=== PATIENT | female | born 1995 | race Caucasian/White ===

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

== ENCOUNTER 2017-01-07 11:33 | Emergency (ER) | payer MEDICAID ==
--- NOTE | 2017-01-07 12:07 | PD ---
HPI Chief Complaint cramping Date Seen: Jan 07, 2017 Time Seen: 12:10 (Cullen Tillman MD R2) Travel History International Travel<30 Days: No Contact w/Intl Traveler<30Days: No (Cullen Tillman MD R2) History of Present Illness HPI 21 year old at 37/6 weeks presents for cramping and leaking fluid. Cramping began last night. It occurs every 30 minutes. Pain is mild to moderate. She noticed her underwear was wet with clear fluid yesterday. She does not believe it is discharge. She has no dysuria or frequent urination and no fevers. She otherwise feels fine. (Cullen Tillman MD R2) History Past Medical History Medical History: Denies Significant Hx (Cullen Tillman MD) Obstetric History Obstetric History at 37/6 weeks [facility] : miscarriage at 16 weeks This : No complications reported (Cullen Tillman MD) Past Surgical History Surgical History: No Previous Surgery (Cullen Tillman MD) Family History Family History: Negative (Cullen Tillman MD) Social History Alcohol Use: No Tobacco Use: No Substance Abuse: No (Cullen Tillman MD) Allergies-Medications (Allergen,Severity, Reaction): Coded Allergies: No Known Allergies (Verified , 01/06/17) Home Meds Reported Medications W/O A W/ Fe Asparto G (Prenate Pixie 10-0.6-0.4-200 mg)1 Cap Cap Po # 30 10/03/16 Review of Systems Except as stated in HPI: all other systems reviewed are Neg (Cullen Tillman MD R2) Physical Exam Narrative GENERAL: Well-nourished, well-developed patient. SKIN: Warm and dry. HEAD: Normocephalic and atraumatic. EYES: No scleral icterus. No injection or drainage. ENT: No nasal drainage noted. Mucous membranes pink. Airway patent. NECK: Supple, trachea midline. No JVD. CARDIOVASCULAR: Regular rate and rhythm without murmurs, gallops, or rubs. RESPIRATORY: Breath sounds equal bilaterally. No accessory muscle use. ABDOMEN/GI: Abdomen soft, non-tender, bowel sounds present, no rebound, no guarding Gravid to 37 weeks size GENITOURINARY: External Genitalia: intact and normal in appearance Dilatation: 3 Effacement: 505 Station: -3 Presentation: [-] Membranes: intact Uterine Contractions: none FHT's: Category: 1 Baseline: 130's Reactive: yes Variability: moderate Decels: none EXTREMITIES: No cyanosis or edema. BACK: Nontender without obvious deformity. No CVA tenderness. NEUROLOGICAL: Awake and alert. Motor and sensory grossly within normal limits. Five out of 5 muscle strength in all muscle groups. Normal speech. (Cullen Tillman MD R2) Data Data Vital Signs Reviewed: Yes (Cullen Tillman MD R2) [facility] Medical Record Reviewed: Yes Interpretation(s) 21 year old at 37/6 weeks presents with cramping - Labor check - Amnisure - Hydration Narrative Course / MDM 21 year old at 37/6 weeks presented with cramping - Amnisure negative - Cervix unchanged - Labor ruled out - Close follow up with OB - Reviewed labor precautions (Cullen Tillman MD R2) Diagnosis Diagnosis: Primary Impression: Uterine cramping Disposition: 01 DISCHARGE HOME Condition: Good Attestation The exam, history, and the medical decision-making described in the above note were completed with the assistance of the resident provider. I reviewed and agree with the findings presented. I attest that I had a [id number] encounter with the patient on the same day, and personally performed and documented my assessment and findings in the medical record. (Kian Flores MD) Cullen Tillman MD R2 Jan 07, 2017 12:07 Kian Flores MD Jan 07, 2017 13:34
[2017-01-07 12:15] VITALS: BP 108/77; PULSE 96; PULSE 97; RESP 18
[2017-02-27] MEDS ORDERED: NORE1CAP PO (10:48)
== END 2017-01-07 13:53 | disposition home or self-care (01) ==
LOC: HOBED 11:33
DX: O26.93 Pregnancy related conditions, unspecified, third trimester (principal); R10.9 Unspecified abdominal pain; Z3A.37 37 weeks gestation of pregnancy
CPT/HCPCS: 84112; 99284

== ENCOUNTER 2017-01-22 22:28 | Emergency (ER) | payer MEDICAID ==
--- NOTE | 2017-01-22 23:05 | PD ---
HPI Chief Complaint Contractions Date Seen: Jan 22, 2017 Time Seen: 23:01 Travel History International Travel<30 Days: No Contact w/Intl Traveler<30Days: No Known Affected Area: No History of Present Illness HPI 21-year-old white female who is at 39 weeks and 2 days comes in today because of contractions since 2 PM this afternoon. They've been mostly irritating mostly irregular and a little bit of mucousy discharge earlier this afternoon. Was seen in the office earlier this week and her cervix was 1 cm. Group B strep is negative Para: 0 : 1 History Past Medical History Medical History: Denies Significant Hx Past Surgical History Surgical History: No Previous Surgery Family History Family History: Negative Social History Alcohol Use: No Tobacco Use: No Substance Abuse: No Allergies-Medications (Allergen,Severity, Reaction): Coded Allergies: No Known Allergies (Verified , 01/20/17) Home Meds Reported Medications W/O A W/ Fe Asparto G (Prenate Pixie 10-0.6-0.4-200 mg)1 Cap Cap Po # 30 10/03/16 Review of Systems Except as stated in HPI: all other systems reviewed are Neg Physical Exam Narrative GENERAL: Well-nourished, well-developed patient. SKIN: Warm and dry. HEAD: Normocephalic and atraumatic. EYES: No scleral icterus. No injection or drainage. ENT: No nasal drainage noted. Mucous membranes pink. Airway patent. NECK: Supple, trachea midline. No JVD. CARDIOVASCULAR: Regular rate and rhythm without murmurs, gallops, or rubs. RESPIRATORY: Breath sounds equal bilaterally. No accessory muscle use. BREASTS: Bilateral exam showed no masses , no retractions, no nipple discharge. ABDOMEN/GI: Abdomen soft, non-tender, bowel sounds present, no rebound, no guarding Gravid to [-] weeks size Fundal Height: [40-] GENITOURINARY: External Genitalia: intact and normal in appearance BUS glands: Normal Cervix: Posterior Dilatation: 1 cm Effacement: 50 Station: -4 Presentation: Vertex Membranes: Intact Uterine Contractions: Irregular FHT's: Category: 1 Baseline: 140 Reactive: Reactive Variability: Moderate Decels: Absent EXTREMITIES: No cyanosis or edema. BACK: Nontender without obvious deformity. No CVA tenderness. NEUROLOGICAL: Awake and alert. Motor and sensory grossly within normal limits. Five out of 5 muscle strength in all muscle groups. Normal speech. Data Data Vital Signs Reviewed: Yes MDM Plan Patient with only occasional contractions and a cervix that is has been rate remained unchanged since her last appointment. Patient was given labor warnings and precautions. She will follow-up with her OB provider next week. Diagnosis Diagnosis: Primary Impression: 39 weeks gestation of Additional Impression: False labor after 37 weeks of gestation without delivery Disposition: 01 DISCHARGE HOME Meche Mcneill MD Jan 22, 2017 23:05
[2017-02-27] MEDS ORDERED: NORE1CAP PO (10:48)
== END 2017-01-23 01:19 | disposition home or self-care (01) ==
LOC: HOBED 22:28
DX: O47.1 False labor at or after 37 completed weeks of gestation (principal); Z3A.39 39 weeks gestation of pregnancy
CPT/HCPCS: 59025

== ENCOUNTER 2017-01-23 06:35 | Inpatient (IN) | payer MEDICAID ==
[2017-01-23] VITALS (52 sets, daily range): BP systolic 109–152; BP diastolic 63–106; PULSE 79–186; RESP 16–20; TEMP 98–99.2
[~2017-01-23] VITALS: Ht 167.6 cm; Wt 88.0 kg
[2017-01-23] MEDS ORDERED: LACTATED RINGER'S 1000 ML INJ 1,000 ML IV SCH (07:17)
[2017-01-23] MEDS ORDERED: LACTATED RINGER'S 1000 ML INJ 1,000 ML IV PRN (07:17)
--- NOTE | 2017-01-23 07:17 | PD ---
HPI Chief Complaint Contractions have worsened since 0400 possible rupture of membranes at 0400 Date Seen: Jan 23, 2017 Time Seen: 07:13 Travel History International Travel<30 Days: No Contact w/Intl Traveler<30Days: No Known Affected Area: No History of Present Illness HPI 21-year-old white female who comes in today at 39 weeks and 3 days with worsening contractions. She was seen yesterday and was only 1 cm but since then complains of ruptured membranes at 0400. She states contractions have worsened in severity since that time. Denies vaginal bleeding and has good movement Para: 0 : 1 History Past Medical History Medical History: Denies Significant Hx Past Surgical History Surgical History: No Previous Surgery Family History Family History: Negative Social History Alcohol Use: No Tobacco Use: No Substance Abuse: No Allergies-Medications (Allergen,Severity, Reaction): Coded Allergies: No Known Allergies (Verified , 01/20/17) Home Meds Reported Medications W/O A W/ Fe Asparto G (Prenate Pixie 10-0.6-0.4-200 mg)1 Cap Cap Po # 30 10/03/16 Review of Systems Except as stated in HPI: all other systems reviewed are Neg Physical Exam Narrative GENERAL: Well-nourished, well-developed patient. SKIN: Warm and dry. HEAD: Normocephalic and atraumatic. EYES: No scleral icterus. No injection or drainage. ENT: No nasal drainage noted. Mucous membranes pink. Airway patent. NECK: Supple, trachea midline. No JVD. CARDIOVASCULAR: Regular rate and rhythm without murmurs, gallops, or rubs. RESPIRATORY: Breath sounds equal bilaterally. No accessory muscle use. BREASTS: Bilateral exam showed no masses , no retractions, no nipple discharge. ABDOMEN/GI: Abdomen soft, non-tender, bowel sounds present, no rebound, no guarding Gravid to [-] weeks size Fundal Height: [-40] GENITOURINARY: External Genitalia: intact and normal in appearance BUS glands: [-nl] Cervix: [post-] Dilatation: [-1-2] Effacement: [80-] Station: [--3] Presentation: [vtx-] Membranes: [intact or ruptured] ruptured, and history is positive Uterine Contractions: [Every 3-5 minutes-] FHT's: Category: [-1] Baseline: [145-] Reactive: Reactive Variability: Moderate Decels: [Absent-] EXTREMITIES: No cyanosis or edema. BACK: Nontender without obvious deformity. No CVA tenderness. NEUROLOGICAL: Awake and alert. Motor and sensory grossly within normal limits. Five out of 5 muscle strength in all muscle groups. Normal speech. Data Data Vital Signs Reviewed: Yes [facility] Medical Record Reviewed: Yes Plan admit for labor GBS negative Diagnosis Diagnosis: Primary Impression: Irregular uterine contractions Additional Impressions: Rupture of membranes with clear amniotic fluid 39 weeks gestation of Meche Mcneill MD Jan 23, 2017 07:17
[2017-01-23] MEDS ORDERED: MINERAL OIL 10 ML VIAL TOPICAL PRN (07:30)
[2017-01-23] MEDS ORDERED: CITRIC ACID-SODIUM CITRATE LIQ 30 ML UDC PO SCH (07:30)
[2017-01-23] MEDS ORDERED: LIDOCAINE HCL 1% 50 ML VIAL I-DERMAL PRN (07:30)
[2017-01-23] MEDS ORDERED: LIDOCAINE HCL 1% 50 ML VIAL INFIL PRN (07:30)
[2017-01-23] MEDS ORDERED: OXYTOCIN 30 UNITS-500ML PREMIX 500 ML IV ONE (07:30)
[2017-01-23] MEDS ORDERED: SODIUM CHLORID 0.9% 500 ML INJ 500 ML IV PRN (07:30)
[2017-01-23] MEDS ORDERED: SODIUM CHLOR 0.9% 1000 ML INJ 1,000 ML IV PRN (07:37)
--- NOTE | 2017-01-23 07:46 | HHI.HP ---
HPI Chief Complaint rupture of membranes Date Seen: Jan 23, 2017 Time Seen: 07:40 (Cullen Tillman MD R2) Travel History International Travel<30 Days: No Contact w/Intl Traveler<30Days: No Known Affected Area: No (Cullen Tillman MD R2) History of Present Illness HPI 21 year old at 40/0 weeks gestation presents after reporting rupturing her membranes at 0400 this morning. Since that time she is feeling contractions every 4 to 6 mins. She rates the pain with contractions as a 9/10. She has good movements. She is a patient at [facility] and reports an uncomplicated course to this point. She is GBS negative. (Cullen Tillman MD R2) History Past Medical History Narrative Medical None (Cullen Tillman MD R2) Obstetric History Obstetric History at 40/0 weeks gestation Patient at [facility] first was early miscarriage This she reports no complications SHARON 01/23/17 - by Unknown LMP of 04/18/16 Confirmed by Ultrasound 07/11/16 Indicators 2 Blood Type: u Group B Strep: u u Problems/Plan ovarian cyst VARICELLA NONIMMUNE N&V BOY GBS NEG Expected Delivery Route/Plan vag Visit Flowsheet Prepregnancy Weight: 154 #: 3 Date EGA BP Wt Alb Glu FuHt Pres FHR F/m CTX Edema Dil Eff Sta Prov 07/11/16 12w0d 116/63 160 n n 08/08/16 16w0d 132/82 159 n n 16 147 Absent Absent Absent sc 09/05/16 20w0d 116/63 167 N N 20 144 Normal Absent Absent sc 10/03/16 24w0d 108/61 167 t N 24 152 Active Absent Absent sc 10/31/16 28w0d 116/61 172 n n 28 146 Active Absent Absent sc 11/21/16 31w0d 120/69 176 tr n 31 Ceph 147 Active Absent Absent lb 12/05/16 33w0d 102/62 176 N N 32 Ceph 132 Active Absent Absent lb 12/19/16 35w0d 120/64 181 n n 35 Ceph 150 Active BH Absent sc 12/23/16 35w4d 122/74 181 35 Ceph 138 Active Occ 1+ jg 12/23/16 35w4d 122/74 181 35 Ceph 134 Active Absent 1+ jg 12/30/16 36w4d 111/70 187 N N 37 Ceph 153 Active Occ 1+ sc Cumulative Gain: 33 2 Date EGA Comment 12/30/16 36w4d baby active, reports occ cxts, nothing regular. labor precautions discussed 12/23/16 35w4d awaiting cultures 12/23/16 35w4d SONO. Good growth, EFW 6 lb 10 oz, 80 %tile, MOE wnl 10.3 cm. Incidental BPP 06/24. Anatomy appears wnl although very limited due to late GA and lie. 12/19/16 35w0d Baby active, GBS and cx obtained. reports occ cxts, was seen in L&D and given med to stop ctxs. labor discussed 12/05/16 33w0d baby active no c/o today 11/21/16 31w0d baby active, reviewed PTL symptoms 10/31/16 28w0d Baby active, pt doing sugar test today. No c/o. Feels 'good' . labor discussed 10/03/16 24w0d baby active, no c/o. labor discussed, pt req flu shot 09/05/16 20w0d SONO. LMP consistent with biometries, EFW 12 oz, Anatomy appears wnl. Right simple ovarian cyst still visualized measuring 0.7x1.2 cm. 09/05/16 20w0d Pt beginning to feel flutters. Strong FHT's. US today wnl. labor discussed as well as good hydration. 08/08/16 16w0d Strong FHT's, unable to feel movement yet. Still c/o N &V, Rx to pharm. 07/11/16 12w0d SONO. LMP consistent with CRL. FHT and NB visualized. Right simple ovarian cyst visualized measuring 4.6 cm x 3.8 cm. FU 8-9 wk for anatomy scan. Standard Items 3 Result Result Date Next Due Freq/Seq Obstetric Labs Initial HIV (1&2) Antibody NONREACTIVE 07/11/16 (12w0d) 10/17/16 (26w0d) 26w0d Thyroid Stimulating Hormone (TSH) 1.56 07/11/16 (12w0d) PRN Varicella-Zoster IgM Antibody Result Unavailable 07/11/16 (12w0d) Complete 6w0d Varicella-Zoster IgG Antibody 0.7 07/11/16 (12w0d) Complete 6w0d Hematocrit 35.9 L 07/11/16 (12w0d) 10/17/16 (26w0d) 6w0d 26w0d Hemoglobin 11.8 L 07/11/16 (12w0d) 10/17/16 (26w0d) 6w0d 26w0d Obstetric Labs 24-28 WKS Hematocrit 35.9 L 07/11/16 (12w0d) 10/17/16 (26w0d) 6w0d 26w0d Hemoglobin 11.8 L 07/11/16 (12w0d) 10/17/16 (26w0d) 6w0d 26w0d Obstetric Labs 32-36 WKS Group B Streptococcus Screen Manual Instance 12/21/16 (35w2d) Complete 35w0d History 2 : 1 AB Spontaneous: 0 Term: 0 Mult Births: 0 : 0 Ectopic: 0 AB Induced: 0 Living Children: 0 OTHER- Care-Labs/US Initial lab date: Jul 11, 2016 Blood type: O D (Rh) Type: Positive Antibody screen: negative Hematocrit (%): 35.9 Hemoglobin (dL): 11.8 Pap test: normal Rubella: Immune VDRL: negative Urine screen: Normal Urine culture: Neg HBsAg: negative HIV: negative Chlamydia: negative Gonorrhea: negative Cystic fibrosis: negative (07/11 neg for cf/fragile x/sma) TSH: 1.56 Varicella: Negative MSAFP/multiple markers: negative ([place] NEG, HAVING A BOY) Visit date: Oct 31, 2016 Hematocrit (%): 33.0 Hemoglobin (dL): 11.2 Diabetes screen - 1-hr GGT: 138 HIV: Negative Hepatitis B: Negative Visit date: Dec 21, 2016 Chlamydia (32 - 36 week labs): negative Gonorrhea (32 - 36 week labs): negative Beta strep culture: negative (Cullen Tillman MD R2) Past Surgical History Narrative Surgical None (Cullen Tillman MD R2) Family History Narrative Family History None significant (Cullen Tillman MD R2) Social History Narrative Social History No smoking, drinking, drug use (Cullen Tillman MD R2) Allergies-Medications (Allergen,Severity, Reaction): Coded Allergies: No Known Allergies (Verified , 01/20/17) Home Meds Reported Medications W/O A W/ Fe Asparto G (Prenate Pixie 10-0.6-0.4-200 mg)1 Cap Cap Po # 30 10/03/16 Review of Systems Except as stated in HPI: all other systems reviewed are Neg (Cullen Tillman MD R2) Physical Exam Narrative GENERAL: In pain during contractions SKIN: Warm and dry. HEAD: Normocephalic and atraumatic. EYES: No scleral icterus. No injection or drainage. ENT: No nasal drainage noted. Mucous membranes pink. Airway patent. NECK: Supple, trachea midline. No JVD. CARDIOVASCULAR: Regular rate and rhythm without murmurs, gallops, or rubs. RESPIRATORY: Breath sounds equal bilaterally. No accessory muscle use. ABDOMEN/GI: Abdomen soft, non-tender, bowel sounds present, no rebound, no guarding Fundal Height: [40] GENITOURINARY: External Genitalia: intact and normal in appearance BUS glands: [-nl] Cervix: [post-] Dilatation: [-1-2] Effacement: [80-] Station: [--3] Presentation: [vtx-] Membranes: [intact or ruptured] ruptured, and history is positive Uterine Contractions: [Every 3-5 minutes-] FHT's: Category: [-1] Baseline: [145-] Reactive: Reactive Variability: Moderate Decels: [Absent-] EXTREMITIES: No cyanosis or edema. BACK: Nontender without obvious deformity. No CVA tenderness. NEUROLOGICAL: Awake and alert. (Cullen Tillman MD R2) Data Data Vital Signs Reviewed: Yes Orders Admit To Inpatient (01/23/17 ) Vital Signs (Adult) .Per protocol (01/23/17 07:17) ^ Heart (01/23/17 07:17) ^ Amnioinfusion (01/23/17 07:17) Urinary Catheter Management .ONCE (01/23/17 07:17) Diet Liquid (01/23/17 Breakfast) Lactated Ringer's 1000 Ml Inj (Lr 1000 M (01/23/17 07:17) Lactated Ringer's 1000 Ml Inj (Lr 1000 M (01/23/17 07:17) Sodium Chlorid 0.9% 500 Ml Inj (Ns 500 M (01/23/17 07:30) Sodium Chlor 0.9% 1000 Ml Inj (Ns 1000 M (01/23/17 07:37) Lidocaine 1% Inj (50 Ml) (Xylocaine 1% I (01/23/17 07:30) Citric Acid-Sodium Citrate Liq (Bicitra (01/23/17 07:30) Fentanyl Inj (Fentanyl Inj) (01/23/17 07:30) Fentanyl Inj (Fentanyl Inj) (01/23/17 07:30) Complete Blood Count With Diff (01/23/17:17) Hold Clot (01/23/17:17) Abo/Rh Blood Type (01/23/17:17) Urinalysis - C+S If Indicated (01/23/17:17) Resp Oxygen Non Rebreathe Mask (01/23/17 ) ^ Epidural / Intrathecal Infus (01/23/17:17) Oxytocin 30 Units-500ml Premix (Pitocin (01/23/17 07:30) Lidocaine 1% Inj (50 Ml) (Xylocaine 1% I (01/23/17 07:30) Light Mineral Oil (Muri-Lube Oil) (01/23/17 07:30) Inpatient Certification (01/23/17 ) (Cullen Tillman MD R2) Assessment/Plan Assessment and Plan 21 year old at 40/0 weeks gestation presents with ruptured membranes and regular painful contractions. GBS negative, labs unremarkable. - Admit to labor and delivery - Monitor course of labor - External monitoring - She desires epidural - Plan for vaginal delivery (Cullen Tillman MD R2) Attestation agree with above care (Meche Mcneill MD) Cullen Tillman MD R2 Jan 23, 2017 07:46 Meche Mcneill MD Jan 23, 2017 09:29
[2017-01-23 08:15] LABS: AUTOMATED NEUTROPHIL # 7.5 TH/MM3 (1.8-7.7); BASOPHIL % 0.3 % (0.0-2.0); EOSINOPHIL # 0.1 TH/MM3 (0-0.4); EOSINOPHIL % 0.7 % (0.0-4.0); HEMATOCRIT 32.8 % (35.0-46.0); HEMO FLAGS DIFF FINAL; LYMPH % 17.4 % (9.0-44.0); LYMPHOCYTE # 1.8 TH/MM3 (1.0-4.8); MEAN CELL VOLUME 82.9 FL (80.0-100.0); MEAN CORPUSCULAR HEMOGLOBIN 27.5 PG (27.0-34.0); MEAN CORPUSCULAR HGB CONC 33.1 % (32.0-36.0); MONO % 8.6 % (0.0-8.0); PLATELET COUNT 303 TH/MM3 (150-450); RED BLOOD COUNT 3.96 MIL/MM3 (4.00-5.30); RED CELL DISTRIBUTION WIDTH 14.8 % (11.6-17.2); WHITE BLOOD COUNT 10.2 TH/MM3 (4.0-11.0)
--- NOTE | 2017-01-23 09:38 | PD.LABORPN ---
Subjective Subjective Patient is feeling more pressure at this point with her contractions, which she feels every 4 minutes. She denies any other symptoms at this point, but requests Fentanyl IV. Objective Vital Signs Vital Signs Date Time Temp Pulse Resp B/P Pulse Ox O2 Delivery O2 Flow Rate FiO2 01/23/17 08:30 16 01/23/17 08:20 89 133/92 01/23/17 06:52 93 135/87 Objective Pelvic Exam: Cervix: firm, posterior Dilatation: 1-2 Effacement: 50% Station: -3 Presentation: vertex Membranes: SROM AT 0400 Uterine Contractions: every 4 min, 40 mvu FHT's: Category: 1 Baseline: 140 Reactive: y to 170 Variability: mod Decels: absent Assessment/Plan Assessment and Plan G1 at 40 weeks with srom at 0400. No cervical change since admission will start Pitocin at 12/19/29 at this time, monitor CTX, d/c for tachysystole GBS negative, labs unremarkable. - Countine routine intrapartum care - CBC shows normal WBC, H/H 10.9/32.8, plt 303, urine pending - Monitor course of labor - External monitoring - She desires epidural - Plan for vaginal delivery Sandra Reddy MD R1 Jan 23, 2017 09:38
[2017-01-23] MEDS ORDERED: OXYTOCIN 30 UNITS-500ML PREMIX 500 ML IV SCH (09:45)
[2017-01-23 09:50] LABS: BLOOD, URINE NEG (NEG); COMMENT (UR) CULT NOT INDICATED; CULTURE IF INDICATED CULT NOT INDICATED; GLUCOSE,URINE NEG (NEG); KETONE, URINE NEG (NEG); MUCUS URINE FEW /lpf (OCC); NITRITE,URINE NEG (NEG); SQUAMOUS EPITHELIAL CELL URINE 1 /hpf (0-5); URINE COLOR YELLOW (YELLW/STRAW)
[2017-01-23] MEDS ORDERED: fentaNYL 2MCG-BUPIV 0.125% INJ 100 ML ONE ×2 (12:27→17:27)
--- NOTE | 2017-01-23 14:56 | PD.LABORPN ---
Subjective Subjective Artificial rupture of remaining membranes attempted but no bag palpated. She is now 5/90/-2. Regular contractions every 3 minutes. Resting in bed, no complaints. Pitocin at 8 milliunits per minute. Epidural in place Objective Vital Signs Vital Signs Date Time Temp Pulse Resp B/P Pulse Ox O2 Delivery O2 Flow Rate FiO2 01/23/17 14:25 84 01/23/17 14:20 85 01/23/17 14:15 83 122/82 01/23/17 14:15 85 01/23/17 13:44 16 01/23/17 13:40 91 118/83 01/23/17 13:40 89 01/23/17 13:38 89 128/74 01/23/17 13:35 84 01/23/17 13:30 95 113/77 01/23/17 13:25 86 121/80 01/23/17 13:25 100 01/23/17 13:21 99 130/78 01/23/17 13:20 100 01/23/17 13:18 16 01/23/17 13:16 88 135/82 01/23/17 13:15 100 01/23/17 13:15 87 141/94 01/23/17 13:11 16 01/23/17 13:10 109 01/23/17 13:05 87 146/82 01/23/17 12:30 16 01/23/17 11:46 81 139/91 01/23/17 11:45 18 01/23/17 11:45 97 152/101 01/23/17 11:44 98.0 01/23/17 11:39 89 122/85 01/23/17 11:30 117 152/106 01/23/17 11:25 20 01/23/17 11:15 82 127/79 01/23/17 10:36 95 18 119/82 01/23/17 09:32 90 133/91 01/23/17 09:30 19 01/23/17 08:30 16 01/23/17 08:20 89 133/92 01/23/17 06:52 93 135/87 Objective Pelvic Exam: Dilatation: 5 Effacement: 90 Station: -2 Presentation: vertex Membranes: SROM at 2 AM Uterine Contractions: q3mins FHT's: Category: 1 Baseline: 140's Reactive:yes Variability: moderate Decels: rare late decels Assessment/Plan Assessment and Plan 21 year old currently in labor, epidural in place, Pitocin at 8 mu/min, currently /-2 - Continue expectant management, plan for vaginal delivery Cullen Tillman MD R2 Jan 23, 2017 14:56
[2017-01-23] MEDS ORDERED: DIPHTH/TETANUS/ACEL PERTUSSIS (BOOSTER) 0.5 ML VIAL/PFS IM ONE (16:00)
[2017-01-23] MEDS ORDERED: MEASLES, MUMPS, RUBELLA VACCINE 0.5 ML VIAL SQ ONE (16:00)
[2017-01-23] MEDS ORDERED: BUPIVACAINE HCL PF 0.25% 10 ML VIAL ONE (18:17)
[2017-01-23] MEDS ORDERED: ZOLPIDEM TARTRATE 5 MG TAB PO PRN (19:30)
[2017-01-23] MEDS ORDERED: ACETAMINOPHEN 325 MG TAB PO PRN (19:30)
[2017-01-23] MEDS ORDERED: SODIUM CHLORIDE 0.9% FLUSH 5 ML FLUSH IV PRN (19:30)
[2017-01-23] MEDS ORDERED: WITCH HAZEL 50%/GLYCERIN 12.5% 40 PAD JAR TOPICAL PRN (19:30)
[2017-01-23] MEDS ORDERED: ALUMINUM/MAGNESIUM/SIMETH 30 ML CUP PO PRN (19:30)
[2017-01-23] MEDS ORDERED: ONDANSETRON ODT 4 MG TAB PO PRN (19:30)
[2017-01-23] MEDS ORDERED: BENZOCAINE 20% TOPICAL SPRAY 60 ML CAN TOPICAL PRN (19:30)
[2017-01-23] MEDS ORDERED: DOCUSATE SODIUM 50 MG/SENNA 8.6 MG TAB PO PRN (19:30)
--- NOTE | 2017-01-23 19:30 | PD.OB.DELI ---
Anesthesia: Epidural Episiotomy: None Vaginal Delivery: Normal, Spontaneous Presentation: Occiput anterior Nuchal Cord: None Delayed cord clamping (45 sec): Yes : Male One Minute : 8 Five Minute : 9 Weight: 3890 gm Care: Suctioned, Spontaneous crying, Responded to stimulation Placenta: Spontaneous delivery, Intact Laceration: Vaginal laceration, 1 deg Repair: Chromic running Edward Lizama II, MD Jan 23, 2017 19:30
[2017-01-23] MEDS ORDERED: ePHEDrine/NS 25 MG/5 ML SYR IV PRN (20:00)
[2017-01-23] MEDS ORDERED: NO SYSTEM NARCOTICS XX PRN (20:00)
[2017-01-23] MEDS ORDERED: fentaNYL 2MCG-BUPIV 0.125% 100 ML EPIDURAL SCH (20:00)
[2017-01-23] MEDS ORDERED: DO NOT ADMINISTER ANTICOAGULANTS XX PRN (20:00)
[2017-01-23] MEDS: IBUPROFEN 600 MG TAB PO PRN (20:10)
[2017-01-23] MEDS: oxyCODONE/ACETAMINOPHEN 5 MG/325 MG TAB PO PRN (20:11)
[2017-01-23] MEDS ORDERED: SODIUM CHLORIDE 0.9% FLUSH 5 ML FLUSH IV SCH (21:00)
--- NOTE | 2017-01-24 07:58 | HHI.OB ---
Subjective Post Day: 1 Remarks day # 1. AFVSS overnight. Incision not draining. Decreased lochia. Denies dysuria. No breast tenderness. She is feeding the baby via breast and bottle. Appetite good. No nausea or vomiting. Ambulating well. Denies calf pain or shortness of breath. Otherwise, she is doing well this morning and has no other concerns. Objective Vitals/I&O Vital Signs Date Time Temp Pulse Resp B/P Pulse Ox O2 Delivery O2 Flow Rate FiO2 01/23/17 21:15 99.2 95 18 129/80 01/23/17 20:45 16 01/23/17 20:30 102 133/82 01/23/17 20:15 107 126/90 01/23/17 20:00 18 01/23/17 20:00 98 134/85 01/23/17 19:45 104 130/84 01/23/17 19:30 16 01/23/17 19:30 107 126/82 01/23/17 19:15 18 01/23/17 19:15 117 137/80 01/23/17 19:00 114 132/81 01/23/17 18:45 18 01/23/17 18:31 186 109/63 01/23/17 18:00 19 01/23/17 18:00 97 111/76 01/23/17 17:45 96 127/85 01/23/17 17:00 100 124/87 01/23/17 16:45 101 130/89 01/23/17 16:35 98.5 01/23/17 16:15 97 115/82 01/23/17 16:15 19 01/23/17 16:00 102 117/91 01/23/17 14:45 79 112/78 01/23/17 14:35 85 01/23/17 14:30 80 01/23/17 14:30 83 112/72 01/23/17 14:25 84 01/23/17 14:20 85 01/23/17 14:15 83 122/82 01/23/17 14:15 85 01/23/17 13:44 16 01/23/17 13:40 91 118/83 01/23/17 13:40 89 01/23/17 13:38 89 128/74 01/23/17 13:35 84 01/23/17 13:30 95 113/77 01/23/17 13:25 86 121/80 01/23/17 13:25 100 01/23/17 13:21 99 130/78 01/23/17 13:20 100 01/23/17 13:18 16 01/23/17 13:16 88 135/82 01/23/17 13:15 100 01/23/17 13:15 87 141/94 01/23/17 13:11 16 01/23/17 13:10 109 01/23/17 13:05 87 146/82 01/23/17 12:30 16 01/23/17 11:46 81 139/91 01/23/17 11:45 18 01/23/17 11:45 97 152/101 01/23/17 11:44 98.0 01/23/17 11:39 89 122/85 01/23/17 11:30 117 152/106 01/23/17 11:25 20 01/23/17 11:15 82 127/79 01/23/17 10:36 95 18 119/82 01/23/17 09:32 90 133/91 01/23/17 09:30 19 01/23/17 08:30 16 01/23/17 08:20 89 133/92 Objective Remarks GENERAL: Well-nourished, well-developed female in NAD CARDIOVASCULAR: Regular rate and rhythm without murmurs, gallops, or rubs. RESPIRATORY: Breath sounds equal bilaterally. No accessory muscle use. ABDOMEN/GI: Abdomen soft, non-tender. Fundus: Firm, non-tender at umbilicus. GENITOURINARY: Light to moderate bleeding. EXTREMITIES: No cyanosis or edema, non-tender, without signs of DVT. Medications and IVs Current Medications Medications (Trade) Dose Ordered Sig/Trina Route Start Time Stop Time Status Last Admin (NS Flush) 2 ml BID IV 01/23/17 21:00 (NS Flush) 2 ml UNSCH PRN IV 01/23/17 19:30 (Tylenol) 650 mg Q4H PRN PO 01/23/17 19:30 (Motrin) 600 mg Q6H PRN PO 01/23/17 19:30 01/23/17 20:10 (Percocet 5-325 Mg) 1 tab Q4H PRN PO 01/23/17 19:30 3/9/17 20:11 (Americaine 20% Top Spr) 1 spray Q4H PRN TOPICAL 01/23/17 19:30 01/23/17 22:10 (Tucks Pads) 1 applic QID PRN TOPICAL 01/23/17 19:30 01/23/17 22:10 (Malka-Colace) 2 tab Q12H PRN PO 01/23/17 19:30 (Ambien) 5 mg HS PRN PO 01/23/17 19:30 (Mag-Al Plus Susp Liq) 15 ml Q8H PRN PO 01/23/17 19:30 (Zofran Odt) 4 mg Q6H PRN PO 01/23/17 19:30 Miscellaneous Information No systemic narcotics to be given except... UNSCH PRN XX 01/23/17 20:00 01/24/17 19:59 Miscellaneous Information DO NOT ADMINISTER ANY ANTICOAGUL... UNSCH PRN XX 01/23/17 20:00 01/24/17 19:59 (fentaNYL 2MCG-BUPIV 0.125% INJ) 100 ml @ 0 mls/hr TITRATE EPIDURAL 01/23/17 20:00 (ePHEDrine/NS 25 MG/5 ML SYR) 10 mg UNSCH PRN IV 01/23/17 20:00 01/24/17 19:59 Assessment/Plan Assessment and Plan 21 y/o female who is PPD# 1 s/p . -Continue routine care. -Percocet and Motrin PRN pain. -Encouraged OOB. Advised pelvic rest for 6 wks. -Re: ctrl, she declines discussion -Anticipate discharge tomorrow DW Sandra Brito MD R1 Jan 24, 2017 07:58
[2017-01-24 08:15] VITALS: BP 125/79; PULSE 95; RESP 18; TEMP 98.6
[2017-01-24] MEDS: oxyCODONE/ACETAMINOPHEN 5 MG/325 MG TAB PO PRN ×3 (08:55→21:59)
[2017-01-24] MEDS: IBUPROFEN 600 MG TAB PO PRN ×3 (08:55→21:59)
[2017-01-24 19:35] VITALS: BP 112/68; PULSE 89; RESP 18; TEMP 97.9
[2017-01-25] MEDS ORDERED: OXYC1TAB63 PO (06:14)
[2017-01-25] MEDS ORDERED: IBUP-232 PO (06:14)
[2017-01-25] MEDS ORDERED: SENN1TAB PO (06:14)
--- NOTE | 2017-01-25 06:15 | HHI.DCPOC ---
Discharge Care Plan Diagnosis: (1) Vaginal delivery Goals to Promote Your Health * To prevent worsening of your condition and complications * To maintain your health at the optimal level Directions to Meet Your Goals Take your medications as prescribed Follow your dietary instruction Follow activity as directed Keep your appointments as scheduled Take your immunizations and boosters as scheduled If your symptoms worsen call your PCP, if no PCP go to Urgent Care Center or Emergency Room Smoking is Dangerous to Your Health. Avoid second hand smoke Call the 24-hour hour crisis hotline for domestic abuse at Cullen Tillman MD R2 Jan 25, 2017 06:15
--- NOTE | 2017-01-25 07:50 | HHI.OB ---
Subjective Post Day: 2 Remarks day #2. AFVSS overnight. Pain controlled. Decreased lochia. Denies dysuria. No breast tenderness. She is feeding the baby via breast. Appetite good. No nausea or vomiting. Endorses flatus. No bowel movement. Ambulating well. Denies calf pain, shortness of breath, or cough. Otherwise, she is doing well this morning and has no other complaints. (Eyal Cueva MD R1) Objective Vitals/I&O Vital Signs Date Time Temp Pulse Resp B/P Pulse Ox O2 Delivery O2 Flow Rate FiO2 01/24/17 19:35 97.9 89 18 112/68 01/24/17 08:15 98.6 18 01/24/17 08:15 125/79 01/24/17 08:15 95 Objective Remarks GENERAL: Well-nourished, well-developed female in NAD CARDIOVASCULAR: Regular rate and rhythm without murmurs, gallops, or rubs. RESPIRATORY: Breath sounds equal bilaterally. No accessory muscle use. ABDOMEN/GI: Abdomen soft, non-tender. Fundus: Firm, non-tender at umbilicus. GENITOURINARY: Light to moderate bleeding. EXTREMITIES: No cyanosis or edema, non-tender, without signs of DVT. Medications and IVs Current Medications Medications (Trade) Dose Ordered Sig/Trina Route Start Time Stop Time Status Last Admin (NS Flush) 2 ml BID IV 01/23/17 21:00 (NS Flush) 2 ml UNSCH PRN IV 01/23/17 19:30 (Tylenol) 650 mg Q4H PRN PO 01/23/17 19:30 (Motrin) 600 mg Q6H PRN PO 01/23/17 19:30 01/24/17 21:59 (Percocet 5-325 Mg) 1 tab Q4H PRN PO 01/23/17 19:30 01/24/17 21:59 (Americaine 20% Top Spr) 1 spray Q4H PRN TOPICAL 01/23/17 19:30 01/23/17 22:10 (Tucks Pads) 1 applic QID PRN TOPICAL 01/23/17 19:30 01/23/17 22:10 (Malka-Colace) 2 tab Q12H PRN PO 01/23/17 19:30 (Ambien) 5 mg HS PRN PO 01/23/17 19:30 (Mag-Al Plus Susp Liq) 15 ml Q8H PRN PO 01/23/17 19:30 Ondansetron HCl 4 mg 4 mg Q6H PRN PO 01/23/17 19:30 (fentaNYL 2MCG-BUPIV 0.125% INJ) 100 ml @ 0 mls/hr TITRATE EPIDURAL 01/23/17 20:00 (Eyal Cueva MD R1) Assessment/Plan Assessment and Plan 21 y/o female who is PPD# 2 s/p . -Continue routine care. -Percocet and Motrin PRN pain. -Encouraged OOB. Advised pelvic rest for 6 wks. -Re: ctrl, she declines discussion -Anticipate discharge today wdw OB attending (Eyal Cueva MD R1) Collaborating MD Comments Agree with discharge plan and management (Meche Mcneill MD) Eyal Cueva MD R1 Jan 25, 2017 07:49 Meche Mcneill MD Jan 25, 2017 09:03
[2017-01-25 08:00] VITALS: BP 120/77; PULSE 82; RESP 16; TEMP 98.9
[2017-01-25] MEDS: oxyCODONE/ACETAMINOPHEN 5 MG/325 MG TAB PO PRN (08:26)
[2017-01-25] MEDS: IBUPROFEN 600 MG TAB PO PRN (08:27)
[2017-01-25 09:45] VITALS: RESP 18
[2017-02-27] MEDS ORDERED: NORE1CAP PO (10:48)
== END 2017-01-25 15:10 | disposition home or self-care (01) | DRG 775 ==
LOC: HOBED 06:35 → H2EB 07:18 → H1EA 20:40
PROVIDERS: ADMIT Obstetrics & Gynecology Obstetrics; ATTEND Obstetrics & Gynecology Obstetrics
PROC: 10E0XZZ Delivery of Products of Conception, External Approach (ICD-10-PCS; principal; 2017-01-23)
PROC: 0UQG7ZZ Repair Vagina, Via Natural or Artificial Opening (ICD-10-PCS; 2017-01-23)
PROC: 00HU33Z Insertion of Infusion Device into Spinal Canal, Percutaneous Approach (ICD-10-PCS; 2017-01-23)
PROC: 3E0R3CZ (ICD-10-PCS; 2017-01-23)
DX: O34.83 Maternal care for other abnormalities of pelvic organs, third trimester (principal); O71.4 Obstetric high vaginal laceration alone; N83.209 Unspecified ovarian cyst, unspecified side; Z3A.40 40 weeks gestation of pregnancy; Z37.0 Single live birth
CPT/HCPCS: 59025; 81001; 84112; 85025; 86900; 86901; 90715; 99285; J2590; J3010; J7120

== ENCOUNTER 2017-04-14 20:45 | Emergency (ER) | payer MEDICAID ==
[~2017-04-14] VITALS: Ht 167.6 cm; Wt 78.4 kg
[~2017-04-14 20:45] MED LIST changes: +NORE1CAP PO; -PREN1CAP17 PO
[2017-04-14 21:04] VITALS: BP 129/90; PULSE 88; RESP 14; TEMP 98.4; O2SAT 98
[2017-04-14 21:13] VITALS: BP 117/85; PULSE 78; RESP 22; O2SAT 98
[2017-04-14] MEDS ORDERED: SODIUM CHLOR 0.9% 1000 ML INJ 1,000 ML IV SCH (21:18)
--- NOTE | 2017-04-14 21:23 | PD ---
HPI Chief Complaint: Flank/Kidney Pain Time Seen by Provider: 21:06 Travel History International Travel<30 days: No Contact w/Intl Traveler<30days: No Traveled to known affect area: No History of Present Illness HPI The patient is a 21-year-old female who presents emergency department for right flank pain. The patient is a one-week history of intermittent and mild right flank pain, however, her pain significantly progressed approximately 2 hours prior to arrival. The pain is located in the right flank, radiates to right lower quadrant, was associated 1 episode of nausea, and there are no current alleviating or exacerbating factors. The patient is a G1 to P1 Ab1 who delivered vaginally in the beginning of January. The patient's last menstrual cycle was one month ago she denies any vaginal discharge, vaginal bleeding, dysuria, frequency, urgency, or hematuria. The patient does have a history of ovarian cysts in the past, however, states the pain was located lower within the pelvis. The patient denies any previous abdominal surgeries. She denies any assisted fever, chills, or sweats. PFSH Past Medical History ADD: Yes Autoimmune Disease: No Cardiovascular Problems: No Developmental Delay: No Diminished Hearing: No Gastrointestinal Disorders: No Genitourinary: No Headaches: Yes Musculoskeletal: No Neurologic: Yes Psychiatric: No Reproductive: No Respiratory: No Immunizations Current: Yes Migraines: No Seizures: Yes (2010 secondary to head trauma ) Menopausal: No : 2 Para: 0 Miscarriage: 1 : 0 Ovarian Cysts: Yes Past Surgical History Other Surgery: No Social History Alcohol Use: No Tobacco Use: No Substance Use: No Allergies-Medications (Allergen,Severity, Reaction): Coded Allergies: No Known Allergies (Verified , 04/14/17) Reported Meds & Prescriptions Reported Meds & Active Scripts Active Taytulla (Norethindrone-Ethinyl Estradiol-Fe) 1-20 mg-Mcg Cap 1 Tab PO DAILY Review of Systems Except as stated in HPI: all other systems reviewed are Neg General / Constitutional: No: Fever Cardiovascular: No: Chest Pain or Discomfort Respiratory: No: Shortness of Breath Gastrointestinal: Positive: Nausea, Vomiting, Abdominal Pain, No: Diarrhea Genitourinary: Positive: Flank Pain, No: Urgency, Frequency, Dysuria, Hematuria, Discharge, Vaginal Bleeding Skin: No Rash Physical Exam Narrative GENERAL: Awake, alert, pleasant 21-year-old female who appears her stated age and is in no acute respiratory distress. SKIN: Focused skin assessment warm/dry. HEAD: Atraumatic. Normocephalic. EYES: Pupils equal and round. No scleral icterus. No injection or drainage. ENT: No nasal bleeding or discharge. Mucous membranes pink and moist. NECK: Trachea midline. No JVD. CARDIOVASCULAR: Regular rate and rhythm. No murmur appreciated. RESPIRATORY: No accessory muscle use. Clear to auscultation. Breath sounds equal bilaterally. GASTROINTESTINAL: Abdomen soft, tender palpation over the right flank, negative Shine's. Mild tenderness right lower quadrant. Stria noted. Back: Right CVA tenderness. MUSCULOSKELETAL: No obvious deformities. No clubbing. No cyanosis. No edema. NEUROLOGICAL: Awake and alert. No obvious cranial nerve deficits. Motor grossly within normal limits. Normal speech. PSYCHIATRIC: Appropriate mood and affect; insight and judgment normal. Data Data Last Documented VS Vital Signs Date Time Temp Pulse Resp B/P Pulse Ox O2 Delivery O2 Flow Rate FiO2 04/14/17 22:29 76 18 112/68 99 Room Air 04/14/17 21:04 98.4 Orders Complete Blood Count With Diff (04/14/17 21:18) Comprehensive Metabolic Panel (04/14/17 21:18) Lipase (04/14/17 21:18) Urinalysis - C+S If Indicated (04/14/17 21:18) Ct Abd/Pel W/O Iv Contrast (04/14/17 21:18) Iv Access Insert/Monitor (04/14/17 21:18) Ecg Monitoring (04/14/17 21:18) Oximetry (04/14/17 21:18) Morphine Inj (Morphine Inj) (04/14/17 21:30) Ondansetron Inj (Zofran Inj) (04/14/17 21:30) Sodium Chlor 0.9% 1000 Ml Inj (Ns 1000 M (04/14/17 21:18) Sodium Chloride 0.9% Flush (Ns Flush) (04/14/17 21:30) Ketorolac Inj (Toradol Inj) (04/14/17 21:30) Ed Urine Pregnancytest Poc (04/14/17 21:18) Morphine Inj (Morphine Inj) (04/14/17 23:15) Labs Laboratory Tests Test 04/14/17 21:45 White Blood Count 13.6 TH/MM3 Red Blood Count 4.89 MIL/MM3 Hemoglobin 13.1 GM/DL Hematocrit 40.0 % Mean Corpuscular Volume 81.7 FL Mean Corpuscular Hemoglobin 26.8 PG Mean Corpuscular Hemoglobin 32.7 % Concent Red Cell Distribution Width 14.2 % Platelet Count 385 TH/MM3 Mean Platelet Volume 8.6 FL Neutrophils (%) (Auto) % Lymphocytes (%) (Auto) % Monocytes (%) (Auto) % Eosinophils (%) (Auto) % Basophils (%) (Auto) % Neutrophils # (Auto) TH/MM3 Lymphocytes # (Auto) TH/MM3 Monocytes # (Auto) TH/MM3 Eosinophils # (Auto) TH/MM3 Basophils # (Auto) TH/MM3 CBC Comment AUTO DIFF Differential Total Cells 100 Counted Neutrophils % (Manual) 46 % Lymphocytes % 48 % Monocytes % 4 % Eosinophils % 1 % Basophils % 1 % Neutrophils # (Manual) 6.3 TH/MM3 Differential Comment FINAL DIFF MANUAL Platelet Estimate NORMAL Platelet Morphology Comment CLUMPED Red Cell Morphology Comment NORMAL Urine Color DAMION Urine Turbidity MOD Urine pH 7.0 Urine Specific Antelope 1.023 Urine Protein 30 mg/dL Urine Glucose (UA) NEG mg/dL Urine Ketones TRACE mg/dL Urine Occult Blood LARGE Urine Nitrite NEG Urine Bilirubin NEG Urine Leukocyte Esterase TRACE Urine RBC INNUM /hpf Urine WBC 3-5 /hpf Urine Squamous Epithelial 0-5 /hpf Cells Urine Amorphous Sediment SMALL Urine Mucus OCC /lpf Microscopic Urinalysis Comment CULT NOT INDICATED Sodium Level 140 MEQ/L Potassium Level 4.0 MEQ/L Chloride Level 105 MEQ/L Carbon Dioxide Level 28.6 MEQ/L Anion Gap 6 MEQ/L Blood Urea Nitrogen 11 MG/DL Creatinine 0.76 MG/DL Estimat Glomerular Filtration 98 ML/MIN Rate Random Glucose 94 MG/DL Calcium Level 9.7 MG/DL Total Bilirubin 0.5 MG/DL Aspartate Amino Transf 43 U/L (AST/SGOT) Alanine Aminotransferase 44 U/L (ALT/SGPT) Alkaline Phosphatase 76 U/L Total Protein 8.1 GM/DL Albumin 4.2 GM/DL Lipase 103 U/L MDM Medical Decision Making Medical Screen Exam Complete: Yes Emergency Medical Condition: Yes Medical Record Reviewed: Yes Interpretation(s) Last Impressions Abdomen/Pelvis CT 04/14/172117 Signed Impressions: Service Date/Time: Friday, April 14, 2017 22:09 - CONCLUSION: 1. Acute obstructive uropathy of the right proximal ureter secondary to a 5 mm calcified calculus resulting in mild ureteropelvocaliectasis. 2. A tiny 3 mm calcified nonobstructing right renal calculus. 3. Uncomplicated colonic diverticulosis. 4. Bilateral ovarian cysts. 5. Minimal free fluid within the cul-de-sac. Nick Teixeira MD Laboratory Tests Test 04/14/17 21:45 White Blood Count 13.6 TH/MM3 Red Blood Count 4.89 MIL/MM3 Hemoglobin 13.1 GM/DL Hematocrit 40.0 % Mean Corpuscular Volume 81.7 FL Mean Corpuscular Hemoglobin 26.8 PG Mean Corpuscular Hemoglobin 32.7 % Concent Red Cell Distribution Width 14.2 % Platelet Count 385 TH/MM3 Mean Platelet Volume 8.6 FL Neutrophils (%) (Auto) % Lymphocytes (%) (Auto) % Monocytes (%) (Auto) % Eosinophils (%) (Auto) % Basophils (%) (Auto) % Neutrophils # (Auto) TH/MM3 Lymphocytes # (Auto) TH/MM3 Monocytes # (Auto) TH/MM3 Eosinophils # (Auto) TH/MM3 Basophils # (Auto) TH/MM3 CBC Comment AUTO DIFF Differential Total Cells 100 Counted Neutrophils % (Manual) 46 % Lymphocytes % 48 % Monocytes % 4 % Eosinophils % 1 % Basophils % 1 % Neutrophils # (Manual) 6.3 TH/MM3 Differential Comment FINAL DIFF MANUAL Platelet Estimate NORMAL Platelet Morphology Comment CLUMPED Red Cell Morphology Comment NORMAL Urine Color DAMION Urine Turbidity MOD Urine pH 7.0 Urine Specific Antelope 1.023 Urine Protein 30 mg/dL Urine Glucose (UA) NEG mg/dL Urine Ketones TRACE mg/dL Urine Occult Blood LARGE Urine Nitrite NEG Urine Bilirubin NEG Urine Leukocyte Esterase TRACE Urine RBC INNUM /hpf Urine WBC 3-5 /hpf Urine Squamous Epithelial 0-5 /hpf Cells Urine Amorphous Sediment SMALL Urine Mucus OCC /lpf Microscopic Urinalysis Comment CULT NOT INDICATED Sodium Level 140 MEQ/L Potassium Level 4.0 MEQ/L Chloride Level 105 MEQ/L Carbon Dioxide Level 28.6 MEQ/L Anion Gap 6 MEQ/L Blood Urea Nitrogen 11 MG/DL Creatinine 0.76 MG/DL Estimat Glomerular Filtration 98 ML/MIN Rate Random Glucose 94 MG/DL Calcium Level 9.7 MG/DL Total Bilirubin 0.5 MG/DL Aspartate Amino Transf 43 U/L (AST/SGOT) Alanine Aminotransferase 44 U/L (ALT/SGPT) Alkaline Phosphatase 76 U/L Total Protein 8.1 GM/DL Albumin 4.2 GM/DL Lipase 103 U/L Differential Diagnosis Differential diagnosis includes pyelonephritis, nephrolithiasis, ovarian torsion , ovarian cyst, ectopic , appendicitis, atypical cholecystitis. Narrative Course IV was established, labs are drawn and sent, and the patient was placed on cardiac telemetry monitoring and continuous pulse oximetry monitoring. The patient was bar useful or busser morphine, Toradol, Zofran, and IV fluids. Bedside UA test was obtained and UA was sent to lab. CT of the abdomen and pelvis was ordered. UA test was negative. CT of the abdomen and pelvis reveals acute obstructive uropathy the right proximal ureter secondary to a 5 mm calcified cackles resulting in a mild ureteropelvocaliectasis. The patient was reevaluated at 10:30 PM, her pain had significantly improved. The patient also is noted to have bilateral ovarian cyst. The patient's pain came back to a 7/10, therefore, patient was given morphine once again. The patient be discharged home on Flomax, [place], ibuprofen, and advised to follow-up with urology. Patient Instructions: General Instructions, Narcotic given in the ED Additional Instructions: Please provide the patient a strainer at discharge. Medications as directed. Follow-up with urology as needed. Plenty fluids to stay hydrated. Med/Other Pt SpecificInfo: Prescription(s) given Scripts Hydrocodone-Acetaminophen ([place])5-325 mg Tab1 Tab PO Q6H PRN (PAIN) #20 TAB Ref 0 Prov:Juan Luis Oglesby MD 04/14/17 Tamsulosin (Flomax)0.4 Mg Cap0.4 Mg PO HS 7 Days Ref 0 Prov:Juan Luis Oglesby MD 04/14/17 Ibuprofen 600 Mg [id number] Mg PO Q6H PRN (Pain/Inflammation) #20 TAB Ref 0 Prov:Juan Luis Oglesby MD 04/14/17 Disposition: 01 DISCHARGE HOME Condition: Stable Juan Luis Oglesby MD April 14, 2017 21:23
[2017-04-14] MEDS ORDERED: KETOROLAC TROMETHAMINE 30 MG/ML (IVP) VIAL IVP ONE (21:30)
[2017-04-14] MEDS ORDERED: SODIUM CHLORIDE 0.9% FLUSH 10 ML FLUSH IV FLUSH PRN (21:30)
[2017-04-14] MEDS ORDERED: MORPHINE SULFATE 4 MG/ML INJ IV PUSH ONE ×2 (21:30→23:15)
[2017-04-14] MEDS ORDERED: ONDANSETRON HCL 4 MG/2 ML VIAL IVP ONE (21:30)
[2017-04-14 22:11] LABS: MEAN CELL VOLUME 81.7 FL (80.0-100.0); MEAN CORPUSCULAR HEMOGLOBIN 26.8 PG (27.0-34.0); MEAN CORPUSCULAR HGB CONC 32.7 % (32.0-36.0); PLATELET COUNT 385 TH/MM3 (150-450); RED BLOOD COUNT 4.89 MIL/MM3 (4.00-5.30); RED CELL DISTRIBUTION WIDTH 14.2 % (11.6-17.2); WHITE BLOOD COUNT 13.6 TH/MM3 (4.0-11.0)
[2017-04-14 22:13] LABS: BLOOD, URINE LARGE (NEG); GLUCOSE,URINE NEG (NEG); KETONE, URINE TRACE mg/dL (NEG); NITRITE,URINE NEG (NEG)
[2017-04-14 22:21] LABS: CHLORIDE 105 MEQ/L (98-107); SODIUM (NA) 140 MEQ/L (136-145)
[2017-04-14 22:25] LABS: ANION GAP 6 MEQ/L (5-15); BICARBONATE 28.6 MEQ/L (21.0-32.0); BLOOD UREA NITROGEN 11 MG/DL (7-18)
[2017-04-14 22:26] LABS: HEMO FLAGS AUTO DIFF
[2017-04-14 22:27] LABS: ALT (GPT) 44 U/L (9-42)
[2017-04-14 22:28] LABS: AST (GOT) 43 U/L (16-38); GLOMERULAR FILTRATION RATE 98 ML/MIN (>89)
[2017-04-14 22:29] VITALS: BP 112/68; PULSE 76; RESP 18; O2SAT 99
[2017-04-14 22:29] LABS: TOTAL BILIRUBIN ADULT 0.5 MG/DL (0.2-1.0)
--- NOTE | 2017-04-14 22:29 | RADHPO ---
EXAM DATE/TIME: 04/14/2017 22:09 [facility] COMPARISON: CT ABDOMEN & PELVIS W/O CONTRAST, November 08, 2014, 11:29. INDICATIONS : Right flank pain and hematuria. ORAL CONTRAST: No oral contrast ingested. RADIATION DOSE: 20.48 CTDIvol (mGy) MEDICAL HISTORY : None SURGICAL HISTORY : None. ENCOUNTER: Initial ACUITY: 1 week PAIN SCALE: 3/10 LOCATION: Right flank TECHNIQUE: Volumetric scanning of the abdomen and pelvis was performed. Using automated exposure control and ad justment of the mA and/or kV according to patient size, radiation dose was kept as low as reasonably achievable to obtain optimal diagnostic quality images. FINDINGS: LOWER LUNGS: The visualized lower lungs are clear. LIVER: Homogeneous density without lesion. There is no dilation of the biliary tree. No calcified gallston es. SPLEEN: Normal size without lesion. PANCREAS: Within normal limits. KIDNEYS: There is acute obstructive uropathy of the right proximal ureter secondary to a 5 mm calcified calcul us resulting in mild ureteropelvocaliectasis. A tiny 3 mm calcified nonobstructing right renal calcul us is also noted. ADRENAL GLANDS: Within normal limits. VASCULAR: There is no aortic aneurysm. BOWEL/MESENTERY: Uncomplicated colonic diverticulosis is noted. ABDOMINAL WALL: Within normal limits. RETROPERITONEUM: There is no lymphadenopathy. BLADDER: No wall thickening or mass. REPRODUCTIVE: Bilateral ovarian cysts are noted measuring 3.3 cm on the right and 3.2 cm on the left. Minimal free fluid is noted within the cul-de-sac.. INGUINAL: There is no lymphadenopathy or hernia. MUSCULOSKELETAL: Within normal limits for patient age. CONCLUSION: 1. Acute obstructive uropathy of the right proximal ureter secondary to a 5 mm calcified calculus res ulting in mild ureteropelvocaliectasis. 2. A tiny 3 mm calcified nonobstructing right renal calculus. 3. Uncomplicated colonic diverticulosis. 4. Bilateral ovarian cysts. 5. Minimal free fluid within the cul-de-sac. Nick Teixeira MD on April 14, 2017 at 22:22 Board Certified Radiologist. This report was verified electronically.
[2017-04-14 22:30] LABS: ALKALINE PHOSPHATASE 76 U/L (45-117)
[2017-04-14 22:47] LABS: URINE COLOR AMBER (YELLW/STRAW)
[2017-04-14 22:50] LABS: MUCUS URINE OCC /lpf (OCC); RBC, URINE INNUM /hpf (0-3); SQUAMOUS EPITHELIAL CELL URINE 0-5 /hpf (0-5)
[2017-04-14 22:51] LABS: COMMENT (UR) CULT NOT INDICATED; CULTURE IF INDICATED CULT NOT INDICATED
[2017-04-14 23:03] LABS: BASOPHILS 1 % (0-2); EOSINOPHILS 1 % (0-4); NEUTROPHIL # MANUAL DIFF 6.3 TH/MM3 (1.8-7.7); POLYS (SEG NEUTROPHILS) 46 % (16-70); WBC DIFF SAMPLE 100
[2017-04-14 23:04] LABS: PLATELET ESTIMATE SMEAR NORMAL (NORMAL); PLATELET MORPHOLOGY CLUMPED (NORMAL); SCAN/DIFF FINAL DIFF MANUAL
[2017-04-14] MEDS ORDERED: TAMS5CAP PO (23:14)
[2017-04-14] MEDS ORDERED: NORC5TAB PO (23:14)
[2017-04-14] MEDS ORDERED: IBUP-232 PO (23:14)
[2017-04-14 23:22] VITALS: RESP 16
== END 2017-04-15 00:16 | disposition home or self-care (01) ==
LOC: PHED 20:45
DX: N83.202 Unspecified ovarian cyst, left side (principal); N83.201 Unspecified ovarian cyst, right side; N20.0 Calculus of kidney; K57.30 Diverticulosis of large intestine without perforation or abscess without bleeding; R11.0 Nausea; R56.9 Unspecified convulsions; Z79.899 Other long term (current) drug therapy
CPT/HCPCS: 74176; 80053; 81001; 83690; 84703; 85007; 85027; 96361; 96374; 96375; 96376; 99285; J1885; J2270; J2405; J7030

== ENCOUNTER 2017-05-06 20:11 | Emergency (ER) | payer MEDICAID ==
[~2017-05-06] VITALS: Ht 167.6 cm; Wt 79.7 kg
[~2017-05-06 20:11] MED LIST changes: +IBUP-232 PO; +NORC5TAB PO; +TAMS5CAP PO
[2017-05-06 20:22] VITALS: BP 111/73; PULSE 68; RESP 16; TEMP 98.4; O2SAT 100
[2017-05-06 20:31] VITALS: RESP 18; O2SAT 100
[2017-05-06 20:45] VITALS: BP 109/77; PULSE 77; RESP 16; O2SAT 97
[2017-05-06] MEDS ORDERED: SODIUM CHLOR 0.9% 1000 ML INJ 1,000 ML IV ONE (21:02)
[2017-05-06 21:06] VITALS: BP 109/77; PULSE 77; RESP 16; O2SAT 97
--- NOTE | 2017-05-06 21:07 | PD ---
HPI Chief Complaint: Flank/Kidney Pain Time Seen by Provider: 21:02 Travel History International Travel<30 days: No Contact w/Intl Traveler<30days: No Traveled to known affect area: No History of Present Illness HPI 21 year-old female presents for complaint of recurrent right flank pain and right lower quadrant pain consistent with prior pain when diagnosed 2-1/2 weeks ago with right obstructive uropathy secondary to 5 mm proximal stone. Patient denies fever chills. Patient's had nausea without vomiting. Patient is been drinking cranberry juice with initially some benefit but now recurrent pain. Patient states she has attempted to have an appointment with a urologist but has not been able to do so successfully as each time she calls the office tells to the do not take her insurance. Patient denies any dysuria frequency urgency or hematuria. Patient is staying months and is not breast-feeding. Patient denies . Patient rates her pain as 8/10 in intensity and is unable to identify exacerbating or alleviating factors. PFSH Past Medical History Narrative Medical ADD renal colic head trauma seizure 2010 ovarian cyst Ab0 no surgery; tobacco use; nursing notes reviewed ADD: Yes Autoimmune Disease: No Cardiovascular Problems: No Developmental Delay: No Diminished Hearing: No Gastrointestinal Disorders: No Genitourinary: No Headaches: Yes Musculoskeletal: No Neurologic: Yes Psychiatric: No Reproductive: No Respiratory: No Immunizations Current: Yes Migraines: No Seizures: Yes (2010 secondary to head trauma ) Tetanus Vaccination: < 5 Years Influenza Vaccination: Yes ?: Not LMP: 6-13-17 Menopausal: No : 2 Para: 0 Miscarriage: 1 : 0 Ovarian Cysts: Yes Past Surgical History Surgical History: No Previous Surgery Other Surgery: No Social History Alcohol Use: No Tobacco Use: Yes (occasional use) Substance Use: No Allergies-Medications (Allergen,Severity, Reaction): Coded Allergies: No Known Allergies (Verified , 05/06/17) Reported Meds & Prescriptions Reported Meds & Active Scripts Active No Active Prescriptions or Reported Medications Review of Systems Except as stated in HPI: all other systems reviewed are Neg General / Constitutional: No: Fever, Chills HENT: No: Congestion Cardiovascular: No: Chest Pain or Discomfort Respiratory: No: Shortness of Breath Gastrointestinal: Positive: Nausea, Abdominal Pain Genitourinary: Positive: Flank Pain, No: Dysuria, Hematuria (right lower quadrant) Musculoskeletal: No: Myalgias, Arthralgias (right-sided) Neurologic: No: Weakness, Dizziness Psychiatric: No: Anxiety Hematologic/Lymphatic: No: Lymph Node Enlargement Physical Exam Narrative GENERAL: Well-developed well-nourished female in no acute distress no respiratory distress SKIN: Warm and dry. HEAD: Normocephalic. EYES: No scleral icterus. No injection or drainage. NECK: Supple, trachea midline. No JVD or lymphadenopathy. CARDIOVASCULAR: Regular rate and rhythm without murmurs, gallops, or rubs. RESPIRATORY: Breath sounds equal bilaterally. No accessory muscle use. GASTROINTESTINAL: Abdomen soft, minimal right lower quadrant abdominal tenderness to palpation without guarding or rebound, nondistended. MUSCULOSKELETAL: No cyanosis, or edema. BACK: Nontender without obvious deformity. Right-sided CVA tenderness. Data Data Last Documented VS Vital Signs Date Time Temp Pulse Resp B/P Pulse Ox O2 Delivery O2 Flow Rate FiO2 05/06/17 22:30 16 05/06/17 21:45 65 120/77 100 Room Air 05/06/17 20:22 98.4 Orders Complete Blood Count With Diff (05/06/17 21:02) Basic Metabolic Panel (Bmp) (05/06/17 21:02) Urinalysis - C+S If Indicated (05/06/17 21:02) Ed Urine Pregnancytest Poc (05/06/17 21:02) Ecg Monitoring (05/06/17 21:02) Iv Access Insert/Monitor (05/06/17 21:02) Sodium Chloride 0.9% Flush (Ns Flush) (05/06/17 21:15) Sodium Chlor 0.9% 1000 Ml Inj (Ns 1000 M (05/06/17 21:02) Ketorolac Inj (Toradol Inj) (05/06/17 21:15) Ondansetron Inj (Zofran Inj) (05/06/17 21:15) Morphine Inj (Morphine Inj) (05/06/17 22:00) Urine Culture (05/06/17 22:00) Abdomen, Kub Only (05/06/17 ) Tamsulosin (Flomax) (05/06/17 23:15) Mandatory Outpatient Referral (05/06/17 23:04) Labs Laboratory Tests Test 05/06/17 05/06/17 20:45 20:55 Urine Color YELLOW Urine Turbidity HAZY Urine pH 5.5 Urine Specific [place] 1.026 Urine Protein NEG mg/dL Urine Glucose (UA) NEG mg/dL Urine Ketones NEG mg/dL Urine Occult Blood LARGE Urine Nitrite NEG Urine Bilirubin NEG Urine Leukocyte Esterase TRACE Urine RBC 0-3 /hpf Urine WBC 6-8 /hpf Urine Squamous Epithelial > 8 /hpf Cells Urine Bacteria RARE /hpf Urine Hyaline Casts /lpf Urine Mucus FEW /lpf Microscopic Urinalysis Comment CULT NOT INDICATED White Blood Count 10.2 TH/MM3 Red Blood Count 4.46 MIL/MM3 Hemoglobin 11.7 GM/DL Hematocrit 35.5 % Mean Corpuscular Volume 79.7 FL Mean Corpuscular Hemoglobin 26.3 PG Mean Corpuscular Hemoglobin 33.0 % Concent Red Cell Distribution Width 13.2 % Platelet Count 382 TH/MM3 Mean Platelet Volume 8.1 FL Neutrophils (%) (Auto) 68.9 % Lymphocytes (%) (Auto) 20.7 % Monocytes (%) (Auto) 7.2 % Eosinophils (%) (Auto) 0.6 % Basophils (%) (Auto) 2.6 % Neutrophils # (Auto) 7.0 TH/MM3 Lymphocytes # (Auto) 2.1 TH/MM3 Monocytes # (Auto) 0.7 TH/MM3 Eosinophils # (Auto) 0.1 TH/MM3 Basophils # (Auto) 0.3 TH/MM3 CBC Comment AUTO DIFF Differential Comment AUTO DIFF CONFIRMED Sodium Level 142 MEQ/L Potassium Level 3.6 MEQ/L Chloride Level 106 MEQ/L Carbon Dioxide Level 26.1 MEQ/L Anion Gap 10 MEQ/L Blood Urea Nitrogen 13 MG/DL Creatinine 0.83 MG/DL Estimat Glomerular Filtration 89 ML/MIN Rate Random Glucose 88 MG/DL Calcium Level 9.3 MG/DL [facility] Medical Decision Making Medical Screen Exam Complete: Yes Emergency Medical Condition: Yes Medical Record Reviewed: Yes Interpretation(s) Last Impressions Abdomen X-Ray 05/06/17 0000 Signed Impressions: Service Date/Time: Saturday, May 06, 2017 22:09 - CONCLUSION: 1. 5 mm calcification overlies mid right ureter. This has progressed only slightly since the prior CT from April 14. Reji Gibbons MD CBC & BMP Diagram 05/06/17 20:55 Vital Signs Date Time Temp Pulse Resp B/P Pulse Ox O2 Delivery O2 Flow Rate FiO2 05/06/17 22:30 16 05/06/17 22:03 18 05/06/17 21:45 65 16 120/77 100 Room Air 05/06/17 20:50 77 18 05/06/17 20:45 77 16 109/77 97 Room Air 05/06/17 20:31 18 100 05/06/17 20:22 98.4 68 16 111/73 100 UA: positive >8 Squam epi cells; large blood, leuk esterase; wbc's bacteria; cx not indicated Differential Diagnosis Obstructive uropathy, hydronephrosis, hydroureter, UTI, pyelonephritis, Narrative Course IV access obtained specimens collected and sent for resulting [id number] Patient administered IV fluid bolus, Toradol 30 mg IV and Zofran 4 mg IV Patient continues complaining of pain administered 15 sulfate 4 mg IV Pain is well controlled and CBC with automated differential metabolic panel and urinalysis eyes grossly normal range except for urinalysis does show greater than 8 squamous epithelial cells culture is not indicated is noted to have white blood cells therefore culture requested to be performed anyway. Patient has had no fever no chills. KUB shows that stone is still present in the mid ureter and has moved from the L3 level down to the L5 level; patient provided prescription for Lortab and Flomax along with Zofran. Patient given name of on-call urologist and mandatory referral has been ordered. Patient is encouraged to return to the emergency department if unable to get into urologist or does not pass stone. Diagnosis Primary Impression: Renal colic on right side Additional Impression: Ureterolithiasis Referrals: Urologist call for appointment [employer] Urologist: Dr Sabino Day Patient Instructions: General Instructions, Narcotic given in the ED Additional Instructions: Increase fluid hydration Strain urine take medications as prescribed call urologist --commission sales associate urologist: Dr Joann Day Return to the emergency department for any concerns or change in condition Take acetaminophen/Tylenol as needed for fever 100.4F or greater Med/Other Pt SpecificInfo: Prescription(s) given Scripts Ondansetron Odt (Zofran Odt)4 Mg Tab4 Mg SL Q6HR PRN (Nausea/Vomiting) #10 TAB Ref 0 Prov:Gabi Rush MD 05/06/17 Hydrocodone-Acetaminophen (Lortab)5-325 Mg Tab1 Tab PO Q6H PRN (PAIN) #12 TAB Ref 0 Prov:Gabi Rush MD 05/06/17 Tamsulosin (Flomax)0.4 Mg Cap0.4 Mg PO HS #5 CAP Ref 0 Prov:Gabi Rush MD 05/06/17 Gabi Rush MD May 06, 2017 21:07
[2017-05-06] MEDS ORDERED: ONDANSETRON HCL 4 MG/2 ML VIAL IV PUSH ONE (21:15)
[2017-05-06] MEDS ORDERED: SODIUM CHLORIDE 0.9% FLUSH 10 ML FLUSH IVF PRN (21:15)
[2017-05-06] MEDS ORDERED: KETOROLAC TROMETHAMINE 30 MG/ML (IVP) VIAL IV PUSH ONE (21:15)
[2017-05-06 21:19] LABS: BASOPHIL # 0.3 TH/MM3 (0-0.2); BASOPHIL % 2.6 % (0.0-2.0); EOSINOPHIL # 0.1 TH/MM3 (0-0.4); EOSINOPHIL % 0.6 % (0.0-4.0); HEMATOCRIT 35.5 % (35.0-46.0); LYMPH % 20.7 % (9.0-44.0); LYMPHOCYTE # 2.1 TH/MM3 (1.0-4.8); MEAN CELL VOLUME 79.7 FL (80.0-100.0); MEAN CORPUSCULAR HEMOGLOBIN 26.3 PG (27.0-34.0); MONO % 7.2 % (0.0-8.0); NEUT % 68.9 % (16.0-70.0); PLATELET COUNT 382 TH/MM3 (150-450); RED BLOOD COUNT 4.46 MIL/MM3 (4.00-5.30); RED CELL DISTRIBUTION WIDTH 13.2 % (11.6-17.2); WHITE BLOOD COUNT 10.2 TH/MM3 (4.0-11.0)
[2017-05-06 21:24] LABS: BLOOD, URINE LARGE (NEG); GLUCOSE,URINE NEG (NEG); KETONE, URINE NEG (NEG); NITRITE,URINE NEG (NEG); PH, URINE 5.5 (5.0-8.5)
[2017-05-06 21:25] LABS: HEMO FLAGS AUTO DIFF
[2017-05-06 21:30] LABS: MUCUS URINE FEW /lpf (OCC); URINE COLOR YELLOW (YELLW/STRAW)
[2017-05-06 21:30] LABS: POTASSIUM 3.6 MEQ/L (3.5-5.1)
[2017-05-06 21:31] LABS: BACTERIA, URINE RARE /hpf; COMMENT (UR) CULT NOT INDICATED; CULTURE IF INDICATED CULT NOT INDICATED; RBC, URINE 0-3 /hpf (0-3); SQUAMOUS EPITHELIAL CELL URINE > 8 /hpf (0-5)
[2017-05-06 21:32] LABS: BICARBONATE 26.1 MEQ/L (21.0-32.0)
[2017-05-06 21:45] VITALS: BP 120/77; PULSE 65; RESP 16; O2SAT 100
[2017-05-06 21:58] LABS: SCAN/DIFF AUTO DIFF CONFIRMED
[2017-05-06] MEDS ORDERED: MORPHINE SULFATE 4 MG/ML INJ IV PUSH ONE (22:00)
[2017-05-06 22:45] VITALS: BP 125/77; PULSE 80; RESP 16; O2SAT 100
--- NOTE | 2017-05-06 22:56 | RADHPO ---
EXAM DATE/TIME: 05/06/2017 22:09 [facility] COMPARISON: CT ABDOMEN & PELVIS W/O CONTRAST, April 14, 2017, 22:09. INDICATIONS : Right side flank pain. MEDICAL HISTORY : Kidney stones. SURGICAL HISTORY : None. ENCOUNTER: Initial ACUITY: 1 week PAIN SCORE: 7/10 LOCATION: Right abdomen. FINDINGS: There is a 5 mm calculus overlying the mid right ureter. This has progressed distally from the L3 to the L5 level since April 14. No pelvic calcifications are identified. No left-sided calculus is identif ied. CONCLUSION: 1. 5 mm calcification overlies mid right ureter. This has progressed only slightly since the prior CT from April 14. Reji Gibbons MD on May 06, 2017 at 22:52 Board Certified Radiologist. This report was verified electronically.
[2017-05-06] MEDS ORDERED: ZOFR4TAB3 SL (23:10)
[2017-05-06] MEDS ORDERED: TAMS5CAP PO (23:10)
[2017-05-06] MEDS ORDERED: HYDR-3533 PO (23:10)
[2017-05-06] MEDS ORDERED: TAMSULOSIN HCL 0.4 MG CAP PO ONE (23:15)
== END 2017-05-06 23:33 | disposition home or self-care (01) ==
LOC: PHED 20:11
DX: N20.1 Calculus of ureter (principal); R11.0 Nausea; Z72.0 Tobacco use
CPT/HCPCS: 74000; 80048; 81001; 84703; 85025; 87086; 96361; 96374; 96375; 99284; J1885; J2270; J2405; J7030

== ENCOUNTER 2017-07-06 08:12 | Inpatient (IN) | payer MEDICAID ==
[~2017-07-06 08:12] MED LIST changes: +HYDR-3533 PO; -IBUP-232 PO; -NORC5TAB PO; -NORE1CAP PO; +ZOFR4TAB3 SL
[2017-07-06 13:30] LABS: AUTOMATED NEUTROPHIL # 5.5 TH/MM3 (1.8-7.7); BASOPHIL # 0.1 TH/MM3 (0-0.2); BASOPHIL % 0.9 % (0.0-2.0); EOSINOPHIL # 0.1 TH/MM3 (0-0.4); EOSINOPHIL % 0.6 % (0.0-4.0); HEMATOCRIT 36.5 % (35.0-46.0); HEMO FLAGS DIFF FINAL; LYMPH % 25.4 % (9.0-44.0); LYMPHOCYTE # 2.2 TH/MM3 (1.0-4.8); MEAN CORPUSCULAR HEMOGLOBIN 27.2 PG (27.0-34.0); MEAN CORPUSCULAR HGB CONC 33.2 % (32.0-36.0); MONO % 6.8 % (0.0-8.0); NEUT % 66.3 % (16.0-70.0); PLATELET COUNT 412 TH/MM3 (150-450); RED BLOOD COUNT 4.45 MIL/MM3 (4.00-5.30); RED CELL DISTRIBUTION WIDTH 14.5 % (11.6-17.2); WHITE BLOOD COUNT 8.5 TH/MM3 (4.0-11.0)
[2017-07-06 13:32] LABS: ALKALINE PHOSPHATASE 74 U/L (45-117); ALT (GPT) 28 U/L (9-42); AST (GOT) 29 U/L (16-38); BLOOD UREA NITROGEN 13 MG/DL (7-18); GLOMERULAR FILTRATION RATE 107 ML/MIN (>89)
[2017-07-06 13:33] LABS: ANION GAP 10 MEQ/L (5-15); BICARBONATE 26.3 MEQ/L (21.0-32.0); CHLORIDE 105 MEQ/L (98-107); POTASSIUM 3.2 MEQ/L (3.5-5.1); SODIUM (NA) 141 MEQ/L (136-145); TOTAL BILIRUBIN ADULT 0.6 MG/DL (0.2-1.0)
[2017-07-06] MEDS: SODIUM CHLOR 0.9% 1000 ML INJ 1,000 ML IV SCH ×2 (13:36→20:41)
--- NOTE | 2017-07-06 13:36 | HHI.HP ---
[facility] No Primary Care Physician Admission Diagnosis Diagnoses: (1) Ureterolithiasis (2) Renal colic on right side Chief Complaint: Right flank pain Travel History International Travel<30 Days: No Contact w/Intl Traveler <30 Da: No Traveled to Known Affected Are: No History of Present Illness This is a pleasant 22-year-old female who has been suffering from a right ureteral stone beginning at the end of March. She has been in the ER several times for this. She has an appointment to establish with Dr. Alvarez of urology tomorrow however this morning she started to develop severe 10 out of 10 right flank pain which radiated into the right lower back. Additionally the patient states that she does not have the $26 co-pay required to see the urologist tomorrow, as her significant other does not get paid until tomorrow. The patient denies dysuria, blood in the urine, fever. She does endorse nausea and several episodes of vomiting. The patient endorses chills. In the emergency department a KUB showed a persistent right ureteral stone. I was requested to admit the patient for pain control and urology evaluation. Review of Systems Constitutional: COMPLAINS OF: Chills, DENIES: Fever Respiratory: DENIES: Cough, Shortness of breath Cardiovascular: DENIES: Chest pain, Palpitations Gastrointestinal: COMPLAINS OF: Nausea, Vomiting, DENIES: Abdominal pain Genitourinary: DENIES: Hematuria, Dysuria Musculoskeletal: COMPLAINS OF: Back pain, DENIES: Neck pain Integumentary: DENIES: Pruritus, Rash Neurologic: DENIES: Abnormal gait, Headache Psychiatric: DENIES: Anxiety, Confusion Past Family Social History Past Medical History None Past Surgical History None Allergies: Coded Allergies: No Known Allergies (Verified , 05/06/17) Family History No history of kidney stones Social History She has an 5-month-old baby. She denies tobacco use alcohol use or illicit drug use. Physical Exam Vital Signs As per EMR. Physical Exam GENERAL: Well-nourished, well-developed patient. SKIN: Warm and dry. HEAD: Normocephalic. EYES: No scleral icterus. No injection or drainage. NECK: Supple, trachea midline. No JVD or lymphadenopathy. CARDIOVASCULAR: Regular rate and rhythm without murmurs, gallops, or rubs. RESPIRATORY: Breath sounds equal bilaterally. No accessory muscle use. GASTROINTESTINAL: Abdomen soft, non-tender, nondistended. Mildly tender to palpation around the right flank area. EXTREMITIES: No cyanosis, or edema. NEUROLOGICAL: Awake, alert, and oriented x 3. Non-focal. Laboratory Laboratory Tests Test 07/06/17 08:30 07/06/17 09:12 Caprini VTE Risk Assessment Caprini VTE Risk Assessment: No/Low Risk (score <= 1) Caprini Risk Assessment Model Point Value = 1 Point Value = 2 Point Value = 3 Point Value = 5 Age 41-60 Minor surgery BMI > 25 kg/m2 Swollen legs Varicose veins or History of unexplained or recurrent spontaneous Oral contraceptives or hormone replacement Sepsis (< 1 month) Serious lung disease, including pneumonia (< 1 month) Abnormal pulmonary function Acute myocardial infarction Congestive heart failure (< 1 month) History of inflammatory bowel disease Medical patient at bed rest Age 61-74 Arthroscopic surgery Major open surgery (> 45 min) Laparoscopic surgery (> 45 min) Malignancy Confined to bed (> 72 hours) Immobilizing plaster cast Central venous access Age >= 75 History of VTE Family history of VTE Factor V Leiden Prothrombin [id number] Lupus anticoagulant Anticardiolipin antibodies Elevated serum homocysteine Heparin-induced thrombocytopenia Other congenital or acquired thrombophilia Stroke (< 1 month) Elective arthroplasty Hip, pelvis, or leg fracture Acute spinal cord injury (< 1 month) Prophylaxis Regimen Total Risk Factor Score Risk Level Prophylaxis Regimen 0-1 Low Early ambulation 2 Moderate Order ONE of the following: *Sequential Compression Device (SCD) *Heparin 5000 units SQ BID 3-4 Higher Order ONE of the following medications: *Heparin 5000 units SQ TID *Enoxaparin/Lovenox 40 mg SQ daily (WT < 150 kg, CrCl > 30 mL/min) *Enoxaparin/Lovenox 30 mg SQ daily (WT < 150 kg, CrCl > 10-29 mL/min) *Enoxaparin/Lovenox 30 mg SQ BID (WT < 150 kg, CrCl > 30 mL/min) AND/OR *Sequential Compression Device (SCD) 5 or more Highest Order ONE of the following medications: *Heparin 5000 units SQ TID (Preferred with Epidurals) *Enoxaparin/Lovenox 40 mg SQ daily (WT < 150 kg, CrCl > 30 mL/min) *Enoxaparin/Lovenox 30 mg SQ daily (WT < 150 kg, CrCl > 10-29 mL/min) *Enoxaparin/Lovenox 30 mg SQ BID (WT < 150 kg, CrCl > 30 mL/min) AND *Sequential Compression Device (SCD) Assessment and Plan Assessment and Plan -Persistent right ureteral stone with intractable renal colic. The stone is 5 mm. It has been progressing slowly. Will admit for pain control, consult urology. -DVT prophylaxis with ambulation. Emily Stevenson MD Jul 06, 2017 13:36
[2017-07-06 13:39] LABS: URINE COLOR YELLOW (YELLW/STRAW)
[2017-07-06 13:40] LABS: BLOOD, URINE MOD (NEG); GLUCOSE,URINE NEG (NEG); KETONE, URINE NEG (NEG); NITRITE,URINE NEG (NEG); PH, URINE 5.5 (5.0-8.5)
[2017-07-06 13:41] LABS: COMMENT (UR) CULT NOT INDICATED; CULTURE IF INDICATED CULT NOT INDICATED; RBC, URINE 0-3 /hpf (0-3); SQUAMOUS EPITHELIAL CELL URINE 0-5 /hpf (0-5); WBC, URINE 0-2 /hpf (0-5)
[2017-07-06] MEDS ORDERED: SODIUM CHLORIDE 0.9% FLUSH 10 ML FLUSH IV FLUSH PRN (13:45)
[2017-07-06] MEDS ORDERED: LACTULOSE SYRUP 20 GM/30 ML CUP PO PRN (13:45)
[2017-07-06] MEDS ORDERED: MORPHINE SULFATE 4 MG/ML INJ IV PRN ×2 (13:45)
[2017-07-06] MEDS ORDERED: NALOXONE HCL 0.4 MG/ML AMP IV PRN (13:45)
[2017-07-06] MEDS ORDERED: ACETAMINOPHEN 325 MG TAB PO PRN (13:45)
[2017-07-06] MEDS: oxyCODONE/ACETAMINOPHEN 10 MG/325 MG TAB PO SCH ×2 (14:00→20:41)
--- NOTE | 2017-07-06 14:14 | RADRPT ---
EXAM DATE/TIME: 07/06/2017 09:17 [facility] COMPARISON: No previous studies available for comparison. INDICATIONS : Right flank pain. Evaluate for renal stone. ORAL CONTRAST: No oral contrast ingested. RADIATION DOSE: 17.65 CTDIvol (mGy) MEDICAL HISTORY : Renal calculi. SURGICAL HISTORY : None. ENCOUNTER: Initial ACUITY: 1 day PAIN SCALE: 10/10 LOCATION: Right flank TECHNIQUE: Volumetric scanning of the abdomen and pelvis was performed. Using automated exposure control and ad justment of the mA and/or kV according to patient size, radiation dose was kept as low as reasonably achievable to obtain optimal diagnostic quality images. DICOM format image data is available electro nically for review and comparison. FINDINGS: LOWER LUNGS: The visualized lower lungs are clear. LIVER: Homogeneous density without lesion. There is no dilation of the biliary tree. No calcified gallston es. SPLEEN: Normal size without lesion. PANCREAS: Within normal limits. KIDNEYS: Normal in size and shape. There is no mass or hydronephrosis on the left. Moderate right-sided hydro nephrosis and hydroureter leading to distal right ureteral calculus measuring 5 mm. There is also a 2 -3 mm calculus in the distal ureter as well. This is seen just proximal to the UVJ. Nonobstructing pu nctate left renal calculus. ADRENAL GLANDS: Within normal limits. VASCULAR: There is no aortic aneurysm. BOWEL/MESENTERY: The stomach, small bowel, and colon demonstrate no acute abnormality. There is no free intraperitone al air or fluid. ABDOMINAL WALL: Within normal limits. RETROPERITONEUM: There is no lymphadenopathy. BLADDER: No wall thickening or mass. REPRODUCTIVE: Within normal limits. INGUINAL: There is no lymphadenopathy or hernia. MUSCULOSKELETAL: Within normal limits for patient age. CONCLUSION: 1. Obstructive uropathy in the distal right ureter tear measuring 5 mm. 2. Nonobstructing punctate left renal calculus. Luan Ballard MD on July 06, 2017 at 9:43 Board Certified Radiologist. This report was verified electronically.
[2017-07-06 16:00] VITALS: BP 145/88; PULSE 58; RESP 19; TEMP 97.7; O2SAT 99
[2017-07-06] MEDS: ONDANSETRON HCL 4 MG/2 ML VIAL IV PUSH PRN (16:30)
--- NOTE | 2017-07-06 17:24 | MB ---
cc: RAFFY ARMSTRONG MD DATE OF CONSULTATION: 02/03/2017. REASON FOR CONSULTATION: 1. Right distal ureteral calculus with hydronephrosis. 2. Right flank pain. HISTORY OF PRESENT ILLNESS: The patient is a 22-year-old otherwise healthy female who presented to the [facility] ER earlier this morning with complaints of acute onset of sharp stabbing right lower quadrant pain 10/10 in nature, radiating to her right flank with associated nausea. The patient had a CT of the abdomen and pelvis without contrast done, which showed a 5 mm distal right UVJ stone as well as a 3 mm stone in her distal right ureter as well with mild hydronephrosis. She was admitted and urology was consulted. She was initially diagnosed several months ago with the same kidney stone and has had pain off and on for the last couple of months. She is scheduled to see Dr. Day in the office tomorrow morning. She denies dysuria, hematuria fevers or chills. She denies a family history of kidney stones or prior history of stones other than this current stone. She does get a urinary tract infection every once in a while. Despite morphing, her pain continues to be an 8/10 and very uncomfortable in nature. REVIEW OF SYSTEMS: See the history of present illness, otherwise all systems reviewed are otherwise negative. PAST MEDICAL HISTORY: Urinary tract infections. PAST SURGICAL HISTORY: None. ALLERGIES: NO KNOWN DRUG ALLERGIES. FAMILY HISTORY: Denies family history of urolithiasis or genitourinary malignancies. SOCIAL HISTORY: She has a 5 month old baby. She smokes occasional tobacco. Denies alcohol or illicit drug use. CURRENT MEDICATIONS: None. PHYSICAL EXAMINATION: VITAL SIGNS: Temperature 97.7, pulse 58, respiratory rate 19, blood pressure 145/88 and satting 99% on room air. GENERAL: She is alert and oriented. She is in mild distress. Pleasant and cooperative lady who appears her stated age. SKIN: No ulcers or rashes are visible. [place] and moist. HEAD, EYES, EARS, NOSE, THROAT: Head is normocephalic and atraumatic. No scleral icterus. Extraocular muscles intact. NECK: The neck is supple. Trachea is midline. No jugular venous distention. LUNGS: Clear to auscultation bilaterally. No wheezes, rales or rhonchi. HEART: Regular rhythm. No murmurs, rubs or gallops. ABDOMEN: The abdomen is soft, nontender and nondistended. Positive bowel sounds. GENITOURINARY EXAM: She has no costovertebral angle tenderness. PELVIC: . EXTREMITIES: Nontender. No cyanosis, clubbing or edema. PSYCHIATRIC: Normal affect. NEUROLOGICAL: Cranial nerves II through XII intact. Strength is 5/5 all four extremities. LABORATORY STUDIES: Sodium 141, potassium 3.2, chloride 105, bicarbonate 26.3, creatinine 0.70, BUN 13, glucose 106. White count 8.5, hemoglobin 12.1, hematocrit 36.5, platelet count 412,000. Urine just showed moderate blood. RADIOLOGICAL STUDIES: CT abdomen and pelvis without contrast images were reviewed and I agree with the radiologist's report. The patient has a 5 mm distal right ureteral stone with mild hydronephrosis as well as a 3 mm stone just proximal to the right ureterovesical junction. She also has a small nonobstructing left renal stone. ASSESSMENT: The patient is a 22-year-old female with a known right ureteral stone who presents with acute onset of right flank pain and nausea. She was found to have a distal right ureteral stone in similar position to what it was several months ago. PLAN: 1. The patient will be admitted for pain control. 2. Will add Toradol and Flomax for pain. 3. Will ask her to strain all urine. 4. Will check a KUB in the morning. 5. If her pain does not get under significant control and her clinical condition worsens, she likely will need an intervention during this hospital stay. Will re-evaluate in 24 hours. Thank you for this consultation. MD CHITRA German/ANA /5:04 PM /5:10 PM
[2017-07-06] MEDS: TAMSULOSIN HCL 0.4 MG CAP PO SCH (18:21)
[2017-07-06] MEDS: KETOROLAC TROMETHAMINE 30 MG/ML (IVP) VIAL IV PUSH SCH (18:22)
--- NOTE | 2017-07-06 18:24 | EP ---
cc: JACKIE TOMLINSON MD HISTORY OF PRESENT ILLNESS: The patient is a young female patient with history of kidney stone previously seen in January for a 5 mm right-sided stone with mild hydronephrosis. The patient has not been able to obtain follow up through urology and is supposed to see [facility] for the first time tomorrow. She presents back to the emergency room because of worsening in right flank pain that started several days ago according to her and her significant other. She currently is stating 10/10 pain. The pain started while she was lifting something at work. She states that it is causing her to be nauseous and vomiting and the patient is actively vomiting in the emergency room. She denies any fevers, urinary symptoms or any other issues. PHYSICAL EXAMINATION: GENERAL: On physical exam, she is a well-developed young white female patient who is in moderate distress, diaphoretic, having active pain and vomiting. She is alert, awake and oriented x3. HEAD AND NECK: Normocephalic and atraumatic exam and the neck is supple. CHEST AND PULMONARY: Exam is unremarkable with clear lungs and nontender chest. There are no wheezes or rhonchi. CARDIAC: Exam did not show any signs of rubs, murmurs or gallops. It is S1 and S2. ABDOMEN: Abdomen soft and nontender to palpation and fairly benign. BACK: Tenderness to right CVA with no midline tenderness. EXTREMITIES: Unremarkable with no cyanosis, clubbing or edema. ASSESSMENT AND PLAN: The differential for her current symptoms would be renal colic versus pyelonephritis versus gastroenteritis versus other acute intraabdominal processes. On further lab work, it was noted that she has a fairly unremarkable metabolic and CBC exam but the CT scan did show a 5 mm stone with moderate hydronephrosis. At this point, the case was discussed with Dr. Zambrano who is covering for [facility], and he states that considering the patient's pain, she should be considered for admission medically for pain control and they will need to evaluate whether the patient needs further treatment of her kidney stone. The case was then discussed with Dr. Stevenson for admission to internal medicine team with consult to urology. While in the emergency room, the patient had received pain control with two doses of morphine 2 milligrams and Zofran with IV fluids. After the treatment, she did report improvement in pain to a 04/26 although the pain worsened after morphine. Jackie FREED /12:53 PM /6:13 PM
[2017-07-06 20:22] VITALS: BP 123/74; PULSE 67; RESP 20; TEMP 97.7; O2SAT 99
[2017-07-06] MEDS: SODIUM CHLORIDE 0.9% FLUSH 10 ML FLUSH IV FLUSH SCH (20:41)
[2017-07-06] MEDS: DOCUSATE SODIUM 50 MG/SENNA 8.6 MG TAB PO SCH (20:41)
[2017-07-07 00:08] VITALS: BP 113/64; PULSE 61; RESP 18; TEMP 97.5; O2SAT 100
[2017-07-07] MEDS: KETOROLAC TROMETHAMINE 30 MG/ML (IVP) VIAL IV PUSH SCH ×3 (00:20→10:55)
[2017-07-07] MEDS: oxyCODONE/ACETAMINOPHEN 10 MG/325 MG TAB PO SCH ×5 (02:27→23:47)
[2017-07-07 06:00] LABS: POTASSIUM 3.9 MEQ/L (3.5-5.1)
--- NOTE | 2017-07-07 06:23 | RADRPT ---
EXAM DATE/TIME: 07/07/2017 06:06 [facility] COMPARISON: No previous studies available for comparison. INDICATIONS : Right flank pain. MEDICAL HISTORY : Renal calculi. SURGICAL HISTORY : None. ENCOUNTER: Subsequent ACUITY: 2 days PAIN SCORE: 5/10 LOCATION: Right abdomen. FINDINGS: Supine view of the abdomen was performed. The abdominal bowel gas pattern is normal. Approximately 5 mm calcification overlies the expected location of the distal right ureter. This is unchanged from r ecent CT exam. CONCLUSION: 1. 5 mm calcification overlies right distal ureter. This is unchanged from recent CT. Bowel gas patte rn unremarkable. Reji Gibbons MD on July 07, 2017 at 6:20 Board Certified Radiologist. This report was verified electronically.
[2017-07-07 08:00] VITALS: BP 104/63; PULSE 64; RESP 16; TEMP 97.3; O2SAT 99
[2017-07-07] MEDS: SODIUM CHLORIDE 0.9% FLUSH 10 ML FLUSH IV FLUSH SCH ×2 (08:27→23:47)
[2017-07-07] MEDS: TAMSULOSIN HCL 0.4 MG CAP PO SCH (08:28)
[2017-07-07] MEDS: SODIUM CHLOR 0.9% 1000 ML INJ 1,000 ML IV SCH ×2 (08:28→18:17)
[2017-07-07] MEDS: DOCUSATE SODIUM 50 MG/SENNA 8.6 MG TAB PO SCH ×2 (08:28→21:00)
--- NOTE | 2017-07-07 09:15 | HHI.PR ---
Subjective Remarks Patient states that her right flank pain is better controlled. She denies nausea or vomiting. KUB reviewed with the patient. Objective Vitals Vital Signs Date Time Temp Pulse Resp B/P (MAP) Pulse Ox O2 Delivery O2 Flow Rate FiO2 07/07/17 08:00 97.3 64 16 104/63 (77) 99 07/07/17 07:32 18 07/07/17 06:33 18 07/07/17 04:36 07/07/17 00:08 97.5 61 18 113/64 (80) 100 07/06/17 20:22 97.7 67 20 123/74 (90) 99 07/06/17 16:00 97.7 58 19 145/88 (107) 99 I/O 07/06/17 07/06/17 07/06/17 07/07/17 07/07/17 07/07/17 07:00 15:00 23:00 07:00 15:00 23:00 Intake Total 2200 ml Balance 2200 ml Intake IV Total 2200 ml # Voids 3 2 Result Diagram: 07/06/17 0912 07/07/17 0530 Objective Remarks GENERAL: Well-nourished, well-developed patient. SKIN: Warm and dry. HEAD: Normocephalic. EYES: No scleral icterus. No injection or drainage. NECK: Supple, trachea midline. No JVD or lymphadenopathy. CARDIOVASCULAR: Regular rate and rhythm without murmurs, gallops, or rubs. RESPIRATORY: Breath sounds equal bilaterally. No accessory muscle use. GASTROINTESTINAL: Abdomen soft, non-tender, nondistended. No right flank tenderness. EXTREMITIES: No cyanosis, or edema. NEUROLOGICAL: Awake, alert, and oriented x 3. Non-focal. A/P Problem List: (1) Ureterolithiasis ICD Code: N20.1 - Calculus of ureter Status: Acute (2) Renal colic on right side ICD Code: N23 - Unspecified renal colic Status: Acute Assessment and Plan -Persistent right ureteral stone - KUB this morning reveals unchanged position in the distal ureter, I reviewed the images myself. The stone is 5 mm. Urology is following. If the stone does not pass she may need intervention. Continue to strain urine. Continue pain control with anti-emetics. Bowel regimen. -DVT prophylaxis with ambulation. Emily Stevenson MD Jul 07, 2017 09:15
[2017-07-07] MEDS: ONDANSETRON HCL 4 MG/2 ML VIAL IV PUSH PRN ×2 (11:00→18:17)
[2017-07-07 12:00] VITALS: BP 140/90; PULSE 80; RESP 16; TEMP 98.8; O2SAT 99
--- NOTE | 2017-07-07 13:15 | HHI.PR ---
Subjective Patient symptoms today Sound asleep upon entering room. feels better. pain improved with toradol. nausea resolved. Denies dysuria, hematuria, fevers, chills. Objective Vital Signs Vital Signs Date Time Temp Pulse Resp B/P (MAP) Pulse Ox O2 Delivery O2 Flow Rate FiO2 07/07/17 12:00 98.8 80 16 140/90 (107) 99 07/07/17 08:00 97.3 64 16 104/63 (77) 99 07/07/17 07:32 18 07/07/17 06:33 18 07/07/17 04:36 07/07/17 00:08 97.5 61 18 113/64 (80) 100 07/06/17 20:22 97.7 67 20 123/74 (90) 99 07/06/17 16:00 97.7 58 19 145/88 (107) 99 Intake & Output 07/07/17 07/07/17 07:00 19:00 Intake Total 2200 ml Balance 2200 ml Intake IV Total 2200 ml # Voids 5 Result Diagram: 07/06/17 0912 07/07/17 0530 Imaging KUB images reviewed. 5 mm stone right distal ureter, c/w CT Scan Objective Remarks NAD. A/O x 3 abd soft Medications and IVs Current Medications Medications (Trade) Dose Ordered Sig/Trina Route Start Time Stop Time Status Last Admin Sodium Chloride 1,000 ml @ 100 mls/hr Q10H IV 07/06/17 13:36 07/07/17 08:28 (NS Flush) 2 ml UNSCH PRN IV FLUSH 07/06/17 13:45 (NS Flush) 2 ml BID IV FLUSH 07/06/17 21:00 (Tylenol) 650 mg Q4H PRN PO 07/06/17 13:45 (Narcan Inj) 0.4 mg UNSCH PRN IV 07/06/17 13:45 (Lactulose Liq) 30 ml DAILY PRN PO 07/06/17 13:45 (Morphine Inj) 2 mg Q3H PRN IV 07/06/17 13:45 07/06/17 16:30 (Morphine Inj) 4 mg Q3H PRN IV 07/06/17 13:45 07/06/17 16:30 (Zofran Inj) 4 mg Q6H PRN IV PUSH 07/06/17 13:45 07/07/17 11:00 (Malka-Colace) 1 tab BID PO 07/06/17 21:00 07/06/17 20:41 (Toradol Inj) 30 mg Q6HR IV PUSH 07/06/17 18:00 07/11/17 17:59 07/07/17 10:55 (Flomax) 0.4 mg DAILY PO 07/06/17 17:15 07/07/17 08:28 (Percocet 10-325 Mg) 1 tab Q6H PO 07/07/17 06:00 07/07/17 12:24 Assessment and Plan Problem List: (1) Ureterolithiasis ICD Code: N20.1 - Calculus of ureter Status: Acute Assessment and Plan Regular diet. Change to PO pain meds If pain controlled, OK to d/c home. F/U with Dr. Day as outpatient. Bassam Zambrano MD Jul 07, 2017 13:15
[2017-07-07] MEDS ORDERED: TAMS5CAP PO (13:18)
[2017-07-07] MEDS ORDERED: KETO10 PO (13:18)
[2017-07-07 16:00] VITALS: BP 124/76; PULSE 66; RESP 16; TEMP 98; O2SAT 99
[2017-07-07] MEDS: KETOROLAC TROMETHAMINE 10 MG TAB PO SCH ×2 (18:16→23:47)
[2017-07-07 20:10] VITALS: BP 112/72; PULSE 72; RESP 20; TEMP 98.1; O2SAT 100
[2017-07-08] MEDS: SODIUM CHLOR 0.9% 1000 ML INJ 1,000 ML IV SCH (05:36)
[2017-07-08] MEDS: oxyCODONE/ACETAMINOPHEN 10 MG/325 MG TAB PO SCH (05:51)
[2017-07-08] MEDS: KETOROLAC TROMETHAMINE 10 MG TAB PO SCH (05:51)
[2017-07-08] MEDS: ONDANSETRON HCL 4 MG/2 ML VIAL IV PUSH PRN (05:58)
[2017-07-08 08:00] VITALS: BP 109/65; PULSE 69; RESP 16; TEMP 97.7; O2SAT 98
[2017-07-08] MEDS ORDERED: OXYC1TAB36 PO (08:58)
[2017-07-08] MEDS ORDERED: SENN1TAB PO (08:58)
[2017-07-08] MEDS ORDERED: ZOFR4TAB3 SL (08:58)
[2017-07-08] MEDS: SODIUM CHLORIDE 0.9% FLUSH 10 ML FLUSH IV FLUSH SCH (09:00)
--- NOTE | 2017-07-08 09:02 | HHI.PR ---
Subjective Remarks The patient states that her pain is better controlled on oral Toradol and Percocet. No vomiting. She is going to eat a little breakfast this morning. Objective Vitals Vital Signs Date Time Temp Pulse Resp B/P (MAP) Pulse Ox O2 Delivery O2 Flow Rate FiO2 07/08/17 08:00 97.7 69 16 109/65 (80) 98 07/07/17 20:10 98.1 72 20 112/72 (85) 100 07/07/17 19:16 18 07/07/17 19:16 18 07/07/17 16:00 98.0 66 16 124/76 (92) 99 07/07/17 12:00 98.8 80 16 140/90 (107) 99 I/O 07/07/17 07/07/17 07/07/17 07/08/17 07/08/17 07/08/17 07:00 15:00 23:00 07:00 15:00 23:00 Intake Total 2200 ml 480 ml 1200 ml 1420 ml Output Total 1100 ml Balance 2200 ml 480 ml 1200 ml 320 ml Intake Oral 480 ml 420 ml IV Total 2200 ml 1200 ml 1000 ml Output Urine Total 1100 ml # Voids 2 4 2 # Bowel Movements 0 Result Diagram: 07/06/17 0912 07/07/17 0530 Objective Remarks GENERAL: Well-nourished, well-developed patient. SKIN: Warm and dry. HEAD: Normocephalic. EYES: No scleral icterus. No injection or drainage. NECK: Supple, trachea midline. No JVD or lymphadenopathy. CARDIOVASCULAR: Regular rate and rhythm without murmurs, gallops, or rubs. RESPIRATORY: Breath sounds equal bilaterally. No accessory muscle use. GASTROINTESTINAL: Abdomen soft, non-tender, nondistended. No right flank tenderness. EXTREMITIES: No cyanosis, or edema. NEUROLOGICAL: Awake, alert, and oriented x 3. Non-focal. A/P Problem List: (1) Ureterolithiasis ICD Code: N20.1 - Calculus of ureter Status: Acute (2) Renal colic on right side ICD Code: N23 - Unspecified renal colic Status: Acute Assessment and Plan -Persistent right ureteral stone - KUB 07/07 revealed unchanged position in the distal ureter. The stone is 5 mm. Urology is following. Per Dr. delgado she may be discharged home with outpatient follow-up with Dr. Day. Prescriptions for Toradol and Percocet and Malka-Colace provided. Patient instructed to return to the emergency department for intractable pain nausea or vomiting. Continue to strain urine. Discharge home today. Emily Stevenson MD Jul 08, 2017 09:01
[2017-07-08] MEDS: TAMSULOSIN HCL 0.4 MG CAP PO SCH (09:24)
[2017-07-08] MEDS: DOCUSATE SODIUM 50 MG/SENNA 8.6 MG TAB PO SCH (09:24)
== END 2017-07-08 11:15 | disposition home or self-care (01) | DRG 694 ==
LOC: PHED 08:52 → PHEDA 11:06 → OBSVTOIN 13:37 → PH3A 13:39
PROVIDERS: ADMIT Family Medicine; ATTEND Family Medicine
DX: N13.2 Hydronephrosis with renal and ureteral calculous obstruction (principal); F17.200 Nicotine dependence, unspecified, uncomplicated; N23 Unspecified renal colic; Z87.440 Personal history of urinary (tract) infections; X50.9XXA Other and unspecified overexertion or strenuous movements or postures, initial encounter
CPT/HCPCS: 74000; 74176; 80048; 80053; 81001; 83690; 85025; J1885; J2270; J2405; J7030

== ENCOUNTER 2018-01-17 14:16 | Emergency (ER) | payer MEDICAID ==
[~2018-01-17] VITALS: Ht 167.6 cm; Wt 82.0 kg
[~2018-01-17 14:16] MED LIST changes: -HYDR-3533 PO; +KETO10 PO; +OXYC1TAB36 PO; +SENN1TAB PO
[2018-01-17 14:35] VITALS: BP 119/58; PULSE 76; RESP 17; TEMP 98.3; O2SAT 99
--- NOTE | 2018-01-17 15:03 | PD ---
HPI Chief Complaint: Cold / Flu Symptoms Time Seen by Provider: 14:56 Travel History International Travel<30 days: No Contact w/Intl Traveler<30days: No Traveled to known affect area: No History of Present Illness HPI Patient is a 22-year-old female otherwise healthy presents emergency department for evaluation of body aches cough congestion runny nose for the past 4 days. Patient states that her grandmother had similar illness and was in bed for about 2 weeks before she got better. Patient states she did not have a flu shot this year. She is secondary concerned that she has not had a period in 2 months, states she had a child about a year ago now and has not been on a control pill since then. No vaginal bleeding or vaginal discharge no abdominal pain. States symptoms are moderate, for the past 4 days, gradually worsening, associated signs and symptoms and context as above. PFSH Past Medical History ADD: Yes Autoimmune Disease: No Cancer: No Cardiovascular Problems: No Developmental Delay: No Diabetes: No Diminished Hearing: No Endocrine: No Gastrointestinal Disorders: No Genitourinary: Yes Headaches: Yes Immune Disorder: No Implanted Vascular Access Dvce: No Kidney Stones: Yes Musculoskeletal: No Neurologic: Yes Psychiatric: No Reproductive: No Respiratory: No Immunizations Current: Yes Migraines: No Seizures: Yes (2011 secondary to head trauma ) Tetanus Vaccination: < 5 Years ?: Unknown LMP: 2 MONTHS AGO Menopausal: No : 2 Para: 0 Miscarriage: 1 : 0 Ovarian Cysts: Yes Past Surgical History Other Surgery: No Social History Alcohol Use: No Tobacco Use: Yes (occasional use) Substance Use: No Allergies-Medications (Allergen,Severity, Reaction): Coded Allergies: No Known Allergies (Verified Adverse Reaction, Unknown, 01/17/18) Reported Meds & Prescriptions Reported Meds & Active Scripts Active No Active Prescriptions or Reported Medications Review of Systems Except as stated in HPI: all other systems reviewed are Neg Physical Exam Narrative GENERAL: Well-developed well-nourished no obvious distress SKIN: Focused skin assessment warm/dry. HEAD: Atraumatic. Normocephalic. EYES: Pupils equal and round. No scleral icterus. No injection or drainage. ENT: No nasal bleeding or discharge. Mucous membranes pink and moist. TMs clear bilaterally, oropharynx clear moist NECK: Trachea midline. No JVD. CARDIOVASCULAR: Regular rate and rhythm. No murmur appreciated. RESPIRATORY: No accessory muscle use. Clear to auscultation. Breath sounds equal bilaterally. GASTROINTESTINAL: Abdomen soft, non-tender, nondistended. Hepatic and splenic margins not palpable. MUSCULOSKELETAL: No obvious deformities. No clubbing. No cyanosis. No edema. NEUROLOGICAL: Awake and alert. No obvious cranial nerve deficits. Motor grossly within normal limits. Normal speech. PSYCHIATRIC: Appropriate mood and affect; insight and judgment normal. Data Data Last Documented VS Vital Signs Date Time Temp Pulse Resp B/P (MAP) Pulse Ox O2 Delivery O2 Flow Rate FiO2 01/17/18 14:35 98.3 76 17 119/58 (78) 99 Orders Orders Urinalysis - C+S If Indicated (01/17/18 15:00) Ed Urine Pregnancytest Poc (01/17/18 15:00) Ed Discharge Order (01/17/18 16:05) Labs Laboratory Tests Test 01/17/18 15:10 Urine Collection Type VOIDED Urine Color YELLOW Urine Turbidity CLEAR Urine pH 7.0 Urine Specific [place] 1.025 Urine Protein NEG mg/dL Urine Glucose (UA) NEG mg/dL Urine Ketones NEG mg/dL Urine Occult Blood NEG Urine Nitrite NEG Urine Bilirubin NEG Urine Urobilinogen 1.0 MG/DL Urine Leukocyte Esterase NEG Urine WBC 0-2 /hpf Urine Squamous Epithelial Cells 0-2 /hpf Urine Mucus FEW /lpf Microscopic Urinalysis Comment CULT NOT INDICATED MDM Medical Decision Making Medical Screen Exam Complete: Yes Emergency Medical Condition: Yes Differential Diagnosis URI, influenza, pneumonia , . Narrative Course Patient room to the emergency department, she appears well in no obvious distress, she is out of the window for Tamiflu and therefore no indication for testing. Patient's test negative. Discussed with her need follow-up with an OB /[facility] primary care physician. Discussed return to ED criteria and symptomatically management. She stable for discharge. Diagnosis Primary Impression: Influenza-like illness Additional Impression: Missed periods Referrals: [facility] No Active Prescriptions or Reported Meds Disposition: 01 DISCHARGE HOME Condition: Stable Nick Penny MD Jan 17, 2018 15:02
[2018-01-17 16:00] LABS: BILIRUBIN, URINE NEG (NEG); BLOOD, URINE NEG (NEG); GLUCOSE,URINE NEG (NEG); KETONE, URINE NEG (NEG); NITRITE,URINE NEG (NEG); URINE COLOR YELLOW (YELLW/STRAW); URINE LEUKOCYTE ESTERASE NEG (NEG)
[2018-01-17 16:11] LABS: MUCUS URINE FEW /lpf (OCC); WBC, URINE 0-2 /hpf (0-5)
[2018-01-17 16:12] LABS: SQUAMOUS EPITHELIAL CELL URINE 0-2 /hpf (0-5)
== END 2018-01-17 16:23 | disposition home or self-care (01) ==
LOC: PHEFT 14:16
DX: J11.1 Influenza due to unidentified influenza virus with other respiratory manifestations (principal); N91.2 Amenorrhea, unspecified; Z72.0 Tobacco use
CPT/HCPCS: 81001; 84703; 99283